=== PATIENT | male | born 1975 | race Caucasian/White ===

== ENCOUNTER 2017-03-12 18:11 | Inpatient (IN) | payer OTHER ==
[2017-03-12] MEDS ORDERED: SODIUM CHLORIDE 1,000 ML IV STA (19:34)
[2017-03-12] MEDS ORDERED: ONDANSETRON 4 MG/2 ML VIAL IVPB ONE (19:34)
--- NOTE | 2017-03-12 20:01 | PDOC ---
History of Present Illness - History of Present Illness Initial Comments: 03/12/17 19:50 41M w/ family hx of multiple cancers including pancreatic cancer in brother presenting with 4 days of epigastric pain. Pt reports having episodes of these pains for past 4 months which come and go and which pt thought were "just gas." However, this most recent episode has been constant, occurred spontaneously, 10/ 10 pain, electric shock in nature, located in epigastric region and LUQ, unrelieved by tylenol, worsened by position changes which flex abdominal muscles , not worsened by specific foods. He also endorses intermittent L leg swelling, and constant nausea and several episodes of emesis over the past few days. Pt reports only being able to tolerate water and bananas today. Pt reports drinking a 6-pack of beer every other day for the past year and was a social drinker on weekends prior to that. Pt also endorses a decreased appetite, occasional night sweats, and a 25 pound weight loss over the past year. 03/12/17 20:03 03/12/17 20:14 <Dwight Rousseau - Last Filed: 03/12/17 22:59> <Jennifer Schneider - Last Filed: 03/13/17 00:46> - General Chief Complaint: Pain Stated Complaint: CHEST PAIN Time Seen by Provider: 03/12/17 19:04 Past History - Past Medical History Seizures: Yes Comment:: 03/12/17 20:01 PSH: Repairs of 2 calcaneal fractures, a L knee fracture, and a L shoulder injury. - Immunization History Td Vaccination: Yes Immunization Up to Date: Yes - Psycho/Social/Smoking Cessation Hx Anxiety: No Suicidal Ideation: No Smoking Status: No Smoking History: Never smoked Years of Tobacco Use: 20 Have you smoked in the past 12 months: No Number of Cigarettes Smoked Daily: 15 Information on smoking cessation initiated: No 'Breaking Loose' booklet given: 08/25/13 Hx Alcohol Use: No Drug/Substance Use Hx: No Substance Use Type: Alcohol Hx Substance Use Treatment: No <Dwight Rousseau - Last Filed: 03/12/17 22:59> <Jennifer Schneider - Last Filed: 03/13/17 00:46> - Past Medical History Allergies/Adverse Reactions: Allergies Allergy/AdvReac Type Severity Reaction Status Date / Time No Known Allergies Allergy Verified 03/12/17 18:52 Home Medications: Ambulatory Orders Ibuprofen [Motrin -] 600 mg PO TID #20 tablet 08/22/13 Folic Acid - 1 mg PO DAILY #0 tablet 09/02/13 Thiamine HCl [Vitamin B1 -] 100 mg PO DAILY #0 tablet 09/02/13 Zinc Sulfate [Orazinc -] 220 mg PO DAILY #0 capsule 09/02/13 Review of Systems - Review of Systems Comments:: 03/12/17 20:10 chronic SOB upon walking [place] a large [place] by his house. denies headache, dizziness, chest pain, diarrhea, constipation, dysuria. 03/12/17 20:13 <Dwight Rousseau - Last Filed: 03/12/17 22:59> *Physical Exam - Vital Signs Last Vital Signs Temp Pulse Resp BP Pulse Ox 98.2 F 89 16 126/86 100 03/12/17 18:52 03/12/17 18:52 03/12/17 18:52 03/12/17 18:52 03/12/17 18:52 - Physical Exam Comments: 03/12/17 20:14 General: middle aged pleasant male, lying in bed in NAD Cardiac: cyst over sternum, tachycardic, normal rhythm, no m/r/g Pulm: CTAB, no wheezing, no rales Abd: markedly tender in epigastric and LUQ regions, hyperactive bowel sounds, soft, ND Extremities: 2+ pitting edema in both lower extremities, L ankle is more swollen than right ankle, onychonycosis in R toes, +distal pulses <Dwight Rousseau - Last Filed: 03/12/17 22:59> - Vital Signs Last Vital Signs Temp Pulse Resp BP Pulse Ox 98.2 F 89 16 126/86 100 03/12/17 18:52 03/12/17 18:52 03/12/17 18:52 03/12/17 18:52 03/12/17 18:52 <Jennifer Schneider - Last Filed: 03/13/17 00:46> ED Treatment Course - LABORATORY CBC & Chemistry Diagram: 03/12/17 20:35 03/12/17 20:35 <Dwight Rousseau - Last Filed: 03/12/17 22:59> - LABORATORY CBC & Chemistry Diagram: 03/12/17 20:35 03/12/17 20:35 - ADDITIONAL ORDERS Additional order review: Laboratory Results 03/12/17 03/12/17 03/12/17 22:30 22:00 20:35 Sodium Potassium Chloride Carbon Dioxide Anion Gap BUN Creatinine Creat Clearance w eGFR Random Glucose Calcium Total Bilirubin Direct Bilirubin AST ALT Alkaline Phosphatase Creatine Kinase 171 Creatine Kinase Index 0.5 CK-MB (CK-2) < 1.0 Troponin I < 0.02 Total Protein Albumin Lipase Stool Occult Blood Negative Alcohol, Quantitative < 5.0 03/12/17 20:35 Sodium 127 L Potassium 4.1 Chloride 95 L Carbon Dioxide 24 Anion Gap 8 BUN 2 L* D Creatinine 0.4 L Creat Clearance w eGFR > 60 Random Glucose 94 D Calcium 7.9 L Total Bilirubin 1.3 H Direct Bilirubin 0.3 H AST 88 H D ALT 23 Alkaline Phosphatase 258 H D Creatine Kinase Creatine Kinase Index CK-MB (CK-2) Troponin I Total Protein 7.2 D Albumin 2.6 L Lipase 121 Stool Occult Blood Alcohol, Quantitative 03/12/17 20:35 RBC 2.79 L D MCV 84.7 MCHC 31.1 L RDW 22.4 H D MPV 9.9 D Neutrophils % 73.6 Lymphocytes % 17.3 D Monocytes % 7.4 Eosinophils % 0.7 Basophils % 1.0 - RADIOLOGY Radiology Studies Ordered: Category Date Time Status ABDOMEN & PELVIS CT WITH CONTR [CT] Stat CT Scan 03/13/17 00:12 Taken CHEST X-RAY PORTABLE* [RAD] Stat Radiology 03/12/17 22:28 Completed ABDOMEN US -LIMITED [US] Stat Ultrasound 03/12/17 22:46 Completed - Medications Given in the ED: ED Medications Discontinued Medications Generic Name Dose Route Start Last Admin Trade Name Freq PRN Reason Stop Dose Admin Hydromorphone HCl 0.5 mg 03/12/17 22:31 03/12/17 23:53 Dilaudid Injection - IVPUSH 03/12/17 22:32 0.5 mg ONCE ONE Administration Sodium Chloride 1,000 mls @ 1,000 mls/hr 03/12/17 19:34 03/12/17 20:35 Normal Saline - IV 03/12/17 20:33 1,000 mls/hr ASDIR STA Administration Pantoprazole Sodium 40 mg/ 100 mls @ 200 mls/hr 03/12/17 20:07 03/12/17 20:37 Sodium Chloride IVPB 03/12/17 20:36 200 mls/hr ONCE ONE Administration Ondansetron HCl 4 mg 03/12/17 19:34 03/12/17 20:37 Zofran Injection IVPB 03/12/17 19:35 4 mg ONCE ONE Administration <Jennifer Schneider - Last Filed: 03/13/17 00:46> Medical Decision Making - Medical Decision Making 03/12/17 22:59 41 M w/ significant alcohol hx presenting with acute epigastric pain, exam notable for marked tenderness in epigastric region and b/l LE edema, possibly due to cirrhosis +/- variceal bleeding vs. gastritis vs. acute pancreatitis vs. cancer. CBC: anemia with Hgb of 7.2 and thrombocytopenia of 97 BMP: hyponatremic to 127, hypochloremic to 95, BUN of 2 LFTs: albumin of 2.6, AST of 88, alk phos of 258 FOBT: negative Abdominal US: CT abdomen/pelvis: 03/12/17 23:40 <Dwight Rousseau - Last Filed: 03/12/17 22:59> *DC/Admit/Observation/Transfer - Attestations Physician Attestion: 03/12/17 23:05 <Dwight Rousseau - Last Filed: 03/12/17 22:59> - Discharge Dispostion Admit: Yes <Jennifer Schneider - Last Filed: 03/13/17 00:46> Diagnosis at time of Disposition: Alcohol abuse, Hyponatremia, High bilirubin, Epigastric pain Anemia Qualifiers: Anemia type: other cause Other causes of anemia: other cause, not classified Qualified Code(s): D64.89 - Other specified anemias
[2017-03-12] MEDS ORDERED: PANTOPRAZOLE SODIUM 40 MG in SODIUM CHLORIDE 100 ML IVPB ONE (20:07)
[2017-03-12] MEDS ORDERED: PANTOPRAZOLE SODIUM 100 ML IVPB ONE (20:14)
[2017-03-12] MEDS ORDERED: ONDANSETRON 4 MG/2 ML VIAL ONE (20:16)
[2017-03-12 20:42] LABS: EOSINOPHIL 0.7 % (0-4.5); MCH 26.3 pg (25.7-33.7); MCHC 31.1 g/dl (32.0-35.9); MEAN CELL VOLUME 84.7 fl (80-96); MEAN PLT VOLUME 9.9 fl (7.5-11.1); NEUTROPHILS 73.6 % (42.8-82.8); PLATELET COUNT 97 K/MM3 (134-434); RDW 22.4 % (11.9-15.9); WHITE BLOOD COUNT 5.9 K/mm3 (4.0-10.0)
[2017-03-12 21:09] LABS: ALBUMIN 2.6 g/dl (3.4-5.0); ANION GAP 8 (8-16); CALCIUM 7.9 mg/dL (8.5-10.1); CO2 24 mmol/L (21-32); GLUCOSE,RANDOM 94 mg/dL (74-106); SGPT/ALT 23 U/L (12-78)
[2017-03-12 21:14] LABS: ALK PHOS 258 U/L (45-117); BILIRUBIN,TOTAL 1.3 mg/dL (0.2-1.0); CREATININE 0.4 mg/dL (0.7-1.3); TOT PROT 7.2 g/dl (6.4-8.2)
[2017-03-12 21:16] LABS: SGOT/AST 88 U/L (15-37)
[2017-03-12 21:19] LABS: PLATELET ESTIMATE DECREASED (NORMAL)
[2017-03-12 21:20] LABS: ANISOCYTOSIS 2+; CPK 171 IU/L (39-308); HYPOCHROMIA 1+; MICROCYTOSIS 1+; POLYCHROMASIA 1+; TARGET CELLS 1+
[2017-03-12 21:21] LABS: TROPONIN I < 0.02 ng/ml (0.00-0.05)
[2017-03-12 22:05] LABS: BILIRUBIN,DIRECT 0.3 mg/dL (0.0-0.2)
[2017-03-12] MEDS ORDERED: HYDROmorphone HCL CARPU-JECT 1 MG/1 ML DISP.SYRIN IVPUSH ONE (22:31)
[2017-03-12] MEDS ORDERED: HYDROmorphone HCL CARPU-JECT 1 MG/1 ML DISP.SYRIN ONE (23:50)
--- NOTE | 2017-03-13 00:14 | PN ---
Teaching Attending Note Name of Resident: Cipriano Choi ATTENDING PHYSICIAN STATEMENT I saw and evaluated the patient. I reviewed the resident's note and discussed the case with the resident. I agree with the resident's findings and plan as documented. SUBJECTIVE: 41 M with pmhx of anemia, etoh abuse, current smoker who presents with epigastric pain. Also, notes pain has been there for 4 months, but is worsened today. Pain level is 10/10, located sharita-epigastric. Notes associated nausea, states he vomited (non-bilous/non bloody), past several days. Notes nothing alleviates abdominal pain. States pain is constant and pressure-like in nature. States his last drink was 5 days ago. Denies any palpitations. OBJECTIVE: Physical: VS: Vital Signs Period Temp Pulse Resp BP Sys/[place] Pulse Ox Last 24 Hr 98.2 F 89 16 126/86 100 GEN: NAD, Resting in bed HEENT: NCAT, PERRL, Throat without erythema or exudates CARD: RRR S1, S2 RESP: Mild Expiratory wheezing bilateral ABD: BSx4, - Robertson's, Mild hepato-splenomegaly, Mild Sharita-epigastric tenderness EXT: - C/C/E CBCD WBC 5.9 K/mm3 (4.0-10.0) D 03/12/17 20:35 RBC 2.79 M/mm3 (4.00-5.60) L D 03/12/17 20:35 Hgb 7.3 GM/dL (11.7-16.9) L D 03/12/17 20:35 Hct 23.6 % (35.4-49) L D 03/12/17 20:35 MCV 84.7 fl (80-96) 03/12/17 20:35 MCHC 31.1 g/dl (32.0-35.9) L 03/12/17 20:35 RDW 22.4 % (11.9-15.9) H D 03/12/17 20:35 Plt Count 97 K/MM3 (134-434) L D 03/12/17 20:35 MPV 9.9 fl (7.5-11.1) D 03/12/17 20:35 CMP Sodium 127 mmol/L (136-145) L 03/12/17 20:35 Potassium 4.1 mmol/L (3.5-5.1) 03/12/17 20:35 Chloride 95 mmol/L (98-107) L 03/12/17 20:35 Carbon Dioxide 24 mmol/L (21-32) 03/12/17 20:35 Anion Gap 8 (8-16) 03/12/17 20:35 BUN 2 mg/dL (7-18) L* D 03/12/17 20:35 Creatinine 0.4 mg/dL (0.7-1.3) L 03/12/17 20:35 Creat Clearance w eGFR > 60 (>60) 03/12/17 20:35 Random Glucose 94 mg/dL (74-106) D 03/12/17 20:35 Calcium 7.9 mg/dL (8.5-10.1) L 03/12/17 20:35 Total Bilirubin 1.3 mg/dL (0.2-1.0) H 03/12/17 20:35 AST 88 U/L (15-37) H D 03/12/17 20:35 ALT 23 U/L (12-78) 03/12/17 20:35 Alkaline Phosphatase 258 U/L (45-117) H D 03/12/17 20:35 Total Protein 7.2 g/dl (6.4-8.2) D 03/12/17 20:35 Albumin 2.6 g/dl (3.4-5.0) L 03/12/17 20:35 CARDIAC ENZYMES Creatine Kinase 171 IU/L (39-308) 03/12/17 20:35 Troponin I < 0.02 ng/ml (0.00-0.05) 03/12/17 20:35 ABD US: Non-Mobile Gallstone with wall thickeningm Trace pericholeycystic fluid. Cannot Rule out Acute Choley, Borderline hepatomegaly with slightly lobulated contour and slightly dense echotexture. Main portal vein slightly prominent 1.5cm. Mile R. Renal Hydronephhrosis. Ekg N SR 86 Qtc 445 ASSESSMENT AND PLAN: 41 M with pmhx of etoh abuse, seizure, anemia who presents with abdominal pain, found to have possible acute choleycysitis and anemia 1.) Abdominal Pain DDx: Acute Choleycystitis/Cirrhosis - HIDA Scan - Sx. consult/abx if positive - NPO - Type and Screen - Coags, CBC Repeat 2.) Normocytic Anemia - possible due to ACD/etoh abuse vs. fe defeciency or combination - Iron studies + Ferritin - B12/Folate - HgB <7 Transfuse 1 unit - Stool Occult negative - Retic/Hapto- ro Hemolysis 3.)Thrombocytopenia - Possible due to etoh cirrhosis - Trend, Keep >[id number] if sx 4.) Chronic Hyponatremia - SIADH/Cirrhosis - U Lytes/ Fluid restrict - Do not increase more than 10 MeQ in 24 hrs 5.) Mild R. Hydronephrosis - Ua/Ucx - Monitor Cr 6.) Transaminitis - Most likely from etoh abuse 7.) Hx. Of Etoh Abuse - Last drink 5 days ago - CIWA/librium prn - Continue Thiamine/Folic A 8.) Weight loss - Chk. TSH - Possibly due to etoh abuse - CT AP- reviewed - Outpt. GI eval 8.) Current Smoker - Advise smoking cessation 9.) LLE Edema - Duplex LE 10.) Dvt Ppx - Ambulate Place in Med- Sx
--- NOTE | 2017-03-13 00:39 | PDOC ---
Attending Attestation - Resident Resident Name: Dwight Rousseau - HPI HPI: 03/13/17 00:38 41 yo male p/w epigastric pain for 3 days - Physicial Exam PE: 03/13/17 00:39 41 yo male loolking older than stated age p/w epigastric pain heent normocephalic,atraumatic,eyes eugenio eomi,neck supple lungd vta b/l cvr [id number] abd ++epigastric pain,tenderenss rectal brown stool,normal tone ext from neuro ambulatory ,axox3 - Medical Decision Making 03/13/17 00:41 41 yo male w PMG alcohol abuse,25 pack years tobacco has 3 days epigastric pain. found to be hyponatremia,anemia, stoool occult negative -admitted to med/ surg
[2017-03-13] MEDS ORDERED: morphine CARPU-JECT 4 MG/1 ML DISP.SYRIN IVPUSH PRN (00:41)
[2017-03-13] MEDS ORDERED: ONDANSETRON 4 MG/2 ML VIAL IVPB PRN (00:41)
--- NOTE | 2017-03-13 02:03 | HP ---
CHIEF COMPLAINT: I have stomach pain PCP: Esha Zavaleta MD HISTORY OF PRESENT ILLNESS: 41 yo M with h/o alcohol dependence (last drink 5 days ago) and active daily tobacco use c/o worsening epigastric pain x 4 days. Patient stated he's been having vague and chronic epigastric pain for months and he attributes the symptom to gas. The pain has become progressively worse in the last 4 days which prompted him to come in ED. It's epigastic and LUQ, non-radiating, intermittent, 8/10, pressure like, a/w NBNB nausea and vomiting but not a/w food or positional, no aggravating or alleviating factors. Patient also had 25 lbs of unintentional weight loss over last year. Denies fever, chills, chest pain, sob, urinary symptoms or dark stool. ER course was notable for: (1) Pain relief with dilaudid 0.5mg x 1 dose (2) Inconclusive RUQ U/S for cholecystitis (3) Normocytic anemia and hyponatremia Recent Travel: Denies PAST MEDICAL HISTORY: None PAST SURGICAL HISTORY: Shoulder repair Social History: Smoking: Daily smoker 14 cig x 25 years Alcohol: 3 big cans of beer every other day x 20 years Drugs: Denies Family History: Father diagnosed with colon cancer at 76 Older brother diagnosed with pancreatic cancer at 46 Mother diabetic Allergies Bee sting - anaphylaxis, need epi pen HOME MEDICATIONS: Home Medications Medication Instructions Recorded Ibuprofen [Motrin -] 600 mg PO TID #20 tablet 08/22/13 Folic Acid - 1 mg PO DAILY #0 tablet 09/02/13 Thiamine HCl [Vitamin B1 -] 100 mg PO DAILY #0 tablet 09/02/13 Zinc Sulfate [Orazinc -] 220 mg PO DAILY #0 capsule 09/02/13 REVIEW OF SYSTEMS CONSTITUTIONAL: loss of appetite, weight change Absent: fever, chills, diaphoresis, generalized weakness, malaise, HEENT: Absent: rhinorrhea, nasal congestion, throat pain, throat swelling, difficulty swallowing, mouth swelling, ear pain, eye pain, visual changes CARDIOVASCULAR: Absent: chest pain, syncope, palpitations, irregular heart rate, lightheadedness , peripheral edema RESPIRATORY: Absent: cough, shortness of breath, dyspnea with exertion, orthopnea, wheezing, stridor, hemoptysis GASTROINTESTINAL: abdominal pain, nausea, vomiting, Absent: abdominal distension, diarrhea, constipation, melena, hematochezia GENITOURINARY: Absent: dysuria, frequency, urgency, hesitancy, hematuria, flank pain, genital pain MUSCULOSKELETAL: Absent: myalgia, arthralgia, joint swelling, back pain, neck pain SKIN: Absent: rash, itching, pallor HEMATOLOGIC/IMMUNOLOGIC: Absent: easy bleeding, easy bruising, lymphadenopathy, frequent infections ENDOCRINE: Absent: unexplained weight gain, unexplained weight loss, heat intolerance, cold intolerance NEUROLOGIC: Absent: headache, focal weakness or paresthesias, dizziness, unsteady gait, seizure, mental status changes, bladder or bowel incontinence PSYCHIATRIC: Absent: anxiety, depression, suicidal or homicidal ideation, hallucinations. PHYSICAL EXAMINATION Last Vital Signs Temp Pulse Resp BP Pulse Ox 98.2 F 89 16 126/86 100 03/12/17 18:52 03/12/17 18:52 03/12/17 18:52 03/12/17 18:52 03/12/17 18:52 GENERAL: AAO x 3, speak in full sentences, not in any distress LUNGS:CTAB HEART: RRR, normal S1 and S2 without murmur, rub or gallop. ABDOMEN: Soft, tenderness in epigastric region, not distended, normoactive bowel sounds, no guarding, no rebound +hepatomegaly +splenomegaly. -ve nayak sign EXTREMITIES: 2+ pulses, warm, +2 pitting edema bilaterally, LLE swelling CBCD WBC 5.9 K/mm3 (4.0-10.0) D 03/12/17 20:35 RBC 2.79 M/mm3 (4.00-5.60) L D 03/12/17 20:35 Hgb 7.3 GM/dL (11.7-16.9) L D 03/12/17 20:35 Hct 23.6 % (35.4-49) L D 03/12/17 20:35 MCV 84.7 fl (80-96) 03/12/17 20:35 MCHC 31.1 g/dl (32.0-35.9) L 03/12/17 20:35 RDW 22.4 % (11.9-15.9) H D 03/12/17 20:35 Plt Count 97 K/MM3 (134-434) L D 03/12/17 20:35 MPV 9.9 fl (7.5-11.1) D 03/12/17 20:35 CMP Sodium 127 mmol/L (136-145) L 03/12/17 20:35 Potassium 4.1 mmol/L (3.5-5.1) 03/12/17 20:35 Chloride 95 mmol/L (98-107) L 03/12/17 20:35 Carbon Dioxide 24 mmol/L (21-32) 03/12/17 20:35 Anion Gap 8 (8-16) 03/12/17 20:35 BUN 2 mg/dL (7-18) L* D 03/12/17 20:35 Creatinine 0.4 mg/dL (0.7-1.3) L 03/12/17 20:35 Creat Clearance w eGFR > 60 (>60) 03/12/17 20:35 Calcium 7.9 mg/dL (8.5-10.1) L 03/12/17 20:35 Total Bilirubin 1.3 mg/dL (0.2-1.0) H 03/12/17 20:35 AST 88 U/L (15-37) H D 03/12/17 20:35 ALT 23 U/L (12-78) 03/12/17 20:35 Alkaline Phosphatase 258 U/L (45-117) H D 03/12/17 20:35 Total Protein 7.2 g/dl (6.4-8.2) D 03/12/17 20:35 Albumin 2.6 g/dl (3.4-5.0) L 03/12/17 20:35 IMAGING RUQ U/S on 03/13: inconclusive for cholecystitis, +liver cirrhosis CXR on 03/13: no acute pathology CT abd on 03/13: pending official report ASSESSMENT/PLAN: 41 yo M with h/o alcohol dependence and active daily tobacco use admitted to med -surg for suspected biliary colic and gastritis. Epigastric pain - Hemodynatically stable with normal WBC - Biliary colic vs. alcohol induced gastritis - HIDA scan r/o cholecystits - NPO - Pain control with morphine 2mg Q4H - Surgery consult Normocytic anemia - Likely 2/2 liver cirrhosis - f/u iron study, haptoglobin and retic count - Repeat CBC at 2am * 1 PRBC if HGB < 7 for possible cholecystectomy Thrombocytopenia - 2/2 liver cirrhosis - Cont. to monitor Elevated LFTs - 2/2 chronic alcohol use - Cont. to trend Hyponatremia - Likely chronic - Fluid restriction - Correction rate < 8 meq in 24 hours - f/u urine lytes and osmo LLE swelling - r/o DVT - Duplex U/S Alcohol dependence - CIWA 5 - No apparent sign of withdrawal - PO folic acid and thiamine FEN - Fluid restriction - Hyponatremic, fluid restriction - NPO for now Prophylaxis - DVT: SCDs - GI: not indicated Dispo - Admit to med-surg Cipriano Choi PGY-2 Pager: [phone] Visit type - Emergency Visit Emergency Visit: Yes ED Registration Date: 03/13/17 Care time: The patient presented to the Emergency Department on the above date and was hospitalized for further evaluation of their emergent condition. - New Patient This patient is new to me today: Yes Date on this admission: 03/13/17 - Critical Care Critical Care patient: No
--- NOTE | 2017-03-13 02:30 | HP ---
CHIEF COMPLAINT: epigastric pain PCP: Dr. Esha Zavaleta HISTORY OF PRESENT ILLNESS: 41yo male with no PMH presenting with epigastric pain x 4 days. Pt has an extended hx of smoking and ETOH, last drink was 4 days ago. Pt reports having similar abdominal pain over the last few months which he attributed to gas, but now the pain is worse. Rated 8/10. Pain is constant, feeling of pressure, does not radiate. The pain is not brought on by eating or positional change. Pt reports regular bowel movements. He does not take any medication for the pain. Pt also had non-bloody, non-bilious vomiting over the last couple days, last episode was this morning. Pt's brother was diagnosed with pancreatic cancer at age 46. Pt reports significant unintentional weight loss of 25 pounds over the last year. ER course was notable for: (1) abdominal US was inconclusive (2) pt received 1 dose of 0.5mg dilaudid, which relieved the abdominal pain (3) abdominal CT - results pending PAST MEDICAL HISTORY: none PAST SURGICAL HISTORY: L shoulder repair 3 yrs ago, performed at [facility] by Dr. Krishna De La O Social History: Smokin cigarettes daily x 25 years Alcohol: 3 large beers every other day x 20 years Drugs: none Family History: Brother - pancreatic cancer at age 46 Father - colon cancer at age 76 Mother - DM Allergies bee sting causing swelling/welts. Pt carries an epipen. HOME MEDICATIONS: Home Medications Medication Instructions Recorded Ibuprofen [Motrin -] 600 mg PO TID #20 tablet 08/22/13 Folic Acid - 1 mg PO DAILY #0 tablet 09/02/13 Thiamine HCl [Vitamin B1 -] 100 mg PO DAILY #0 tablet 09/02/13 Zinc Sulfate [Orazinc -] 220 mg PO DAILY #0 capsule 09/02/13 REVIEW OF SYSTEMS CONSTITUTIONAL: (+) weight loss of 25 pounds x 1 yr, loss of appetite Absent: fever, chills, diaphoresis HEENT: Absent: rhinorrhea, nasal congestion, throat pain, throat swelling, mouth swelling, ear pain, eye pain CARDIOVASCULAR: Absent: chest pain, syncope, palpitations, irregular heart rate, lightheadedness RESPIRATORY: Absent: cough, shortness of breath, dyspnea with exertion, orthopnea, wheezing, stridor, hemoptysis GASTROINTESTINAL: (+) epigastric and LUQ pain, nausea, vomiting Absent: abdominal distension, diarrhea, constipation, melena, hematochezia GENITOURINARY: Absent: dysuria, frequency, urgency, hesitancy, hematuria, flank pain, genital pain MUSCULOSKELETAL: Absent: myalgia, arthralgia, joint swelling, back pain, neck pain SKIN: Absent: rash, itching, pallor HEMATOLOGIC/IMMUNOLOGIC: Absent: easy bleeding, easy bruising, lymphadenopathy, frequent infections ENDOCRINE: Absent: heat intolerance, cold intolerance NEUROLOGIC: Absent: headache, focal weakness or paresthesias, dizziness, unsteady gait, seizure, mental status changes, bladder or bowel incontinence PSYCHIATRIC: Absent: anxiety, depression, suicidal or homicidal ideation, hallucinations. PHYSICAL EXAMINATION Vital Signs - 24 hr 03/12/17 18:52 Temperature 98.2 F Pulse Rate 89 Respiratory 16 Rate Blood Pressure 126/86 O2 Sat by Pulse 100 Oximetry (%) GENERAL: Awake, alert, and fully oriented, in no acute distress. HEAD: Normal with no signs of trauma. EYES: Sclera anicteric, conjunctiva clear. No lid lag. EARS, NOSE, THROAT: Ears normal, oropharynx clear without exudates. Moist mucous membranes. NECK: Supple without lymphadenopathy, JVD, or masses. LUNGS: Breath sounds equal, clear to auscultation bilaterally. No wheezes, and no crackles. No accessory muscle use. HEART: Regular rate and rhythm, normal S1 and S2 without murmur, rub or gallop. ABDOMEN: Tender in epigastric and LUQ. Hepatomegaly. Splenomegaly. Negative Robertson sign. No caput medusa. Soft, not distended, normoactive bowel sounds, no guarding, no rebound, no masses. UPPER EXTREMITIES: 2+ pulses, warm, well-perfused. No cyanosis. No clubbing. No peripheral edema. LOWER EXTREMITIES: 2+ pitting edema to bilateral lower extremities, Left lower leg with slightly more edema than Right leg. 2+ pulses, warm, well-perfused. No calf tenderness. Negative Partida test to Left extremity. NEUROLOGICAL: Normal speech. Normal gait. PSYCHIATRIC: Cooperative. Good eye contact. Appropriate mood and affect. SKIN: Warm, dry, normal turgor, no rashes or lesions noted. Laboratory Results CBCD WBC 5.9 K/mm3 (4.0-10.0) D 03/12/17 20:35 RBC 2.79 M/mm3 (4.00-5.60) L D 03/12/17 20:35 Hgb 7.3 GM/dL (11.7-16.9) L D 03/12/17 20:35 Hct 23.6 % (35.4-49) L D 03/12/17 20:35 MCV 84.7 fl (80-96) 03/12/17 20:35 MCHC 31.1 g/dl (32.0-35.9) L 03/12/17 20:35 RDW 22.4 % (11.9-15.9) H D 03/12/17 20:35 Plt Count 97 K/MM3 (134-434) L D 03/12/17 20:35 MPV 9.9 fl (7.5-11.1) D 03/12/17 20:35 CMP Sodium 127 mmol/L (136-145) L 03/12/17 20:35 Potassium 4.1 mmol/L (3.5-5.1) 03/12/17 20:35 Chloride 95 mmol/L (98-107) L 03/12/17 20:35 Carbon Dioxide 24 mmol/L (21-32) 03/12/17 20:35 Anion Gap 8 (8-16) 03/12/17 20:35 BUN 2 mg/dL (7-18) L* D 03/12/17 20:35 Creatinine 0.4 mg/dL (0.7-1.3) L 03/12/17 20:35 Creat Clearance w eGFR > 60 (>60) 03/12/17 20:35 Calcium 7.9 mg/dL (8.5-10.1) L 03/12/17 20:35 Total Bilirubin 1.3 mg/dL (0.2-1.0) H 03/12/17 20:35 AST 88 U/L (15-37) H D 03/12/17 20:35 ALT 23 U/L (12-78) 03/12/17 20:35 Alkaline Phosphatase 258 U/L (45-117) H D 03/12/17 20:35 Total Protein 7.2 g/dl (6.4-8.2) D 03/12/17 20:35 Albumin 2.6 g/dl (3.4-5.0) L 03/12/17 20:35 IMAGING RUQ U/S on 03/12 - inconclusive for cholecystitis, (+) liver cirrhosis CXR on 03/12 - no acute pathology CT abd on 03/13 - official report pending ASSESSMENT/PLAN: 41yo M with h/o of ETOH and smoking, admitted for suspected biliary colic vs gastritis. Epigastric pain - hemodynamically stable with normal WBC - biliary colic vs gastritis vs gastric ulcer vs cirrhosis vs cholecystisis - HIDA scan ordered for later today because U/S was inconclusive - NPO - pain control with morphine 2mg Q4H - Surgery Consult Normocytic Anemia - normal transfusion threshold. 1 U PRBCs if Hgb <7.0. - f/u iron studies Elevated LFTs - likely r/t cirrhosis - cont. to monitor Thrombocytopenia - likely r/t cirrhosis - cont. to monitor Hyponatremia - fluid restriction - correction rate less than 8meq in 24 hrs - f/u urine electrolytes Smoking Hx - Nicoderm 14mg topical patch Alcohol - no signs of withdrawal - PO folic acid and thiamine when able Left lower extremity edema - negative duplex U/S - DVT prophylaxis - SCDs FEN - hyponatremic, fluid restriction - NPO Disposition - ADM to med-surg Visit type - Emergency Visit Emergency Visit: Yes ED Registration Date: 03/13/17 Care time: The patient presented to the Emergency Department on the above date and was hospitalized for further evaluation of their emergent condition. - New Patient This patient is new to me today: Yes Date on this admission: 03/13/17 - Critical Care Critical Care patient: No
[2017-03-13 03:35] VITALS: BMI 19.3
[2017-03-13 05:32] LABS: URINE APPEARANCE CLEAR; URINE BILIRUBIN NEGATIVE (NEGATIVE); URINE BLOOD NEGATIVE (NEGATIVE); URINE COLOR LTYELLOW; URINE GLUCOSE (UA) NEGATIVE (NEGATIVE); URINE KETONE NEGATIVE (NEGATIVE); URINE LEUK ESTERASE NEGATIVE (NEGATIVE); URINE NITRITE NEGATIVE (NEGATIVE); URINE PROTEIN NEGATIVE (NEGATIVE); URINE UROBILINOGEN NEGATIVE mg/dL (0.2-1.0)
[2017-03-13 07:49] LABS: MCHC 30.7 g/dl (32.0-35.9); MEAN CELL VOLUME 84.7 fl (80-96); MEAN PLT VOLUME 9.5 fl (7.5-11.1); PLATELET COUNT 55 K/MM3 (134-434); RDW 22.5 % (11.9-15.9); WHITE BLOOD COUNT 4.9 K/mm3 (4.0-10.0)
[2017-03-13 08:05] LABS: INR 1.29 (0.82-1.09); PROTHROMBIN TIME (PATIENT) 14.3 SEC (9.98-11.88)
[2017-03-13 08:08] LABS: ACTIVATED PTT 32.5 SECONDS (26.9-34.4)
[2017-03-13 08:19] LABS: ALBUMIN 2.3 g/dl (3.4-5.0); ALK PHOS 212 U/L (45-117); ANION GAP 6 (8-16); BILIRUBIN,TOTAL 0.9 mg/dL (0.2-1.0); CO2 27 mmol/L (21-32); CREATININE 0.4 mg/dL (0.7-1.3); GLUCOSE,RANDOM 81 mg/dL (74-106); MAGNESIUM 1.9 mg/dL (1.8-2.4); SGOT/AST 40 U/L (15-37); SGPT/ALT 17 U/L (12-78)
[2017-03-13 09:26] LABS: SODIUM,RANDOM URINE 9 MMOL/L
[2017-03-13 09:27] LABS: URINE CREATININE 43.5 mg/dL (20-370)
--- NOTE | 2017-03-13 10:21 | CONSULT ---
Consult - text type - Consultation Consultation Note: Attempted to see patient - currently in HIDA scan. Will try again later. Of note, alcoholic patient with cirrhosis, ascites, hyponatremia, INR 1.3, albumin ~2.5, Hb hydrated from 7.3 to 6.6, normal wbc. Poor operative candidate even if HIDA is positive. Full consult to follow. MD Angela
[2017-03-13] MEDS ORDERED: SODIUM CHLORIDE 1,000 ML IV SCH (11:15)
[2017-03-13] MEDS ORDERED: PANTOPRAZOLE SODIUM 40 MG VIAL ONE (11:16)
[2017-03-13] MEDS ORDERED: SODIUM CHLORIDE 100 ML IVPB ONE (11:16)
[2017-03-13] MEDS: THIAMINE HCL 100 MG TABLET (FP) PO SCH (11:37)
[2017-03-13] MEDS: PANTOPRAZOLE SODIUM 40 MG in SODIUM CHLORIDE 100 ML IVPB SCH (11:37)
[2017-03-13] MEDS: FOLIC ACID 1 MG TABLET (FP) PO SCH (11:37)
[2017-03-13] MEDS: NICOTINE 14 MG/24 HOURS TOPICAL PATCH TD SCH (11:38)
--- NOTE | 2017-03-13 12:50 | EKG ---
Test Reason : Blood Pressure : / mmHG Vent. Rate : 086 BPM Atrial Rate : 086 BPM P-R Int : 154 ms QRS Dur : 082 ms QT Int : 372 ms P-R-T Axes : 067 067 052 degrees QTc Int : 445 ms NORMAL SINUS RHYTHM NORMAL ECG WHEN COMPARED WITH ECG OF 28-AUG-2013 12:55, NO SIGNIFICANT CHANGE WAS FOUND CORRELATION IS RECOMMENDED Confirmed by KENZIE GRANADOS MD ([id number] on 03/13/2017 12:49:54 PM Referred By: Confirmed By:KENZIE GRANADOS MD
--- NOTE | 2017-03-13 13:22 | PN ---
Teaching Attending Note Name of Resident: Ania Escobar ATTENDING PHYSICIAN STATEMENT I saw and evaluated the patient. I reviewed the resident's note and discussed the case with the resident. I agree with the resident's findings and plan as documented. SUBJECTIVE: denies SOB or fever . has Abd pain in epigastric area but that improved significantly. OBJECTIVE: NAD , awake and alert dry MMM . CV: RRR, no MRG Lungs : CATB ext : NO edema or erythema Abd: soft, ND , TTP in epigastric area with no rebound tenderness or guarding . Neg Robertson's . NL BS ASSESSMENT AND PLAN: 41 y/o man withh/o Alcohol abuse who presented with abd pain . He was found to be anemic 1- Epigastric pain, likely from gastritis or PUD in setting of alcohol abuse. Acute cholecystitis is unlikely as he has no TTP i n RUQ and Neg Robertson'ssign. - PPI , add carafate or MAalox . - HIDA is pending - check HP stool Ag . 2- Normocytic anemia : likely due to BM suppression for alcohol use and cirrhosis . Hb worsened with IVF use . Of course , can't r/o chronic bleeding from esophageal Varices . Also , bleeding from gastritis or PUD due to NSAIDs use - iron studies are stil pending but ferritin is 18 only indicating a component of Iron def. - start iron supp as out pt - B12, folate NL - Transfuse one unit and repeat CBC - consult GI for possible EGD . 3- Possible cirrhosis : seen on CT and US. never worked up before . - GI consult 4- Hyponatremia : likely due to hypovolemia as pt clinically is volume depleted and his Na improved after IVF administration - start IVF at a gentle rate x 24 h and then reassess - dc fluid restriction 5-Thrombocytopenia : likely due to liver disease. Not actively bleeding now. No need for transfusion 6- ALcohol Abuse : no signs of withdrawal today . - monitor for withdrawal sx - thiamine and folate - no signs of wernicke's. 7- DVT pX : SCDs
[2017-03-13] MEDS: MAG HYDROX/AL HYDROX/SIMETH 355 ML ORAL.SUSP PO SCH ×2 (14:00→22:13)
--- NOTE | 2017-03-13 14:52 | CONSULT ---
Consult Consult Specialty:: General Surgery Referred by:: Dr. Dove Reason for Consultation:: gallstones, possible cholecystitis - History of Present Illness Chief Complaint: epigastric pain with n/v initially History of Present Illness: 41yo alcoholic M smoker with h/o multiple bone fractures s/p surgeries, admitted through ER overnight with 4-5 days of progressively worsening epigastric pain, initially associated with multiple episodes of NB/NB emesis ( last ), then the ability to eat and drink over subsequent days, no F/C, no d/c, no similar previous episodes. He wanted to come to ER 2d ago, but had no transportation, and the pain has continued to get worse, until his brother could bring him last night to the ER. He has also lost 2 pants/clothes sizes in the last 1-1.5 years unintentionally. In the ER, he was found to be anemic, hyponatremic, hypochloremic, with normal wbc, afebrile, and with CT imaging showing gallstones with cirrhotic liver, ascites, pericholecystic fluid, no biliary dilation, no free air and no obstruction. US was done confirming gallstones, but was equivocal for cholecystitis, given the ascites and cirrhotic-appearing liver. He was admitted to medicine with a surgical consult to evaluate for gallbladder pathology. HIDA was done this morning, with visualization of the gallbladder but abnormal uptake and excretion of tracer c/w hepatocellular disease. His pain is improved, and he is hungry. No nausea or vomiting recently. He had loose BM/diarrhea this morning after CT with oral contrast overnight. - History Source History Provided By: Patient, Medical Record Limitations to Obtaining History: No Limitations - Past Medical History Psych: Yes: Addictions (alcohol) Musculoskeletal: Yes: Other (R heel/foot fusion) Additional Medical History: bilateral heel fractures, L shoulder injury - Past Surgical History Additional Surgical History: L humerus fracture with L shoulder surgery including reconstruction; R foot/ankle/heel surgery with fusion after fall off roof - Alcohol/Substance Use Hx Alcohol Use: Yes Number of Drinks Daily: 7 (3-20oz beers daily, more or less for many years, was less before the last yr) History of Substance Use: reports: None - Smoking History Smoking history: Current every day smoker Have you smoked in the past 12 months: Yes Aproximately how many cigarettes per day: 14 (x20 yrs) Home Medications - Allergies Allergies/Adverse Reactions: Allergies Allergy/AdvReac Type Severity Reaction Status Date / Time bee venom protein (honey bee) Allergy Severe Verified 03/13/17 14:53 - Home Medications Home Medications: Ambulatory Orders Ibuprofen [Motrin -] 600 mg PO TID #20 tablet 08/22/13 Folic Acid - 1 mg PO DAILY #0 tablet 09/02/13 Thiamine HCl [Vitamin B1 -] 100 mg PO DAILY #0 tablet 09/02/13 Zinc Sulfate [Orazinc -] 220 mg PO DAILY #0 capsule 09/02/13 Home Medications (free text): pt recently started magnesium supplements Family Disease History - Family Disease History Family Disease History: CA: Brother (pancreatic at age 46, dx 2m ago) Review of Systems - Review of Systems Constitutional: denies: Chills, Fever Eyes: denies: Blurred Vision, Double Vision HENT: denies: Difficult Swallowing, Epistaxis, Nasal Congestion, Throat Pain Neck: denies: Swollen Glands, Tenderness Cardiovascular: denies: Chest Pain, Palpitations Respiratory: denies: Cough, SOB, SOB on Exertion Gastrointestinal: reports: Abdominal Pain (with hpi), Nausea (with hpi last ), Vomiting (with HPI last ). denies: Constipation, Diarrhea, Vomiting Blood Genitourinary: denies: Burning, Dysuria Musculoskeletal: reports: Extremity Pain (R foot chronic since accident/surgery) . denies: Back Pain Integumentary: denies: Change in Color, Rash Neurological: reports: Unsteady Gait (difficulty walking secondary to R heel fusion - not otherwise unsteady, just different). denies: Dizziness, Headache, Seizure (denies), Tremors (denies with abstinence) Endocrine: reports: Unexplained Weight Loss (2 pants sizes in last year to year and a half). denies: Unexplained Weight Gain Psychiatric: denies: Anxiety, Depression Physical Exam Vital Signs: Vital Signs Temperature 98.4 F 03/13/17 11:37 Pulse Rate 79 03/13/17 11:37 Respiratory Rate 18 03/13/17 11:37 Blood Pressure 110/69 03/13/17 11:37 O2 Sat by Pulse Oximetry (%) 98 03/13/17 09:00 Constitutional: Yes: No Distress, Calm (but slightly tremorous ("when i first wake up")), Thin Eyes: Yes: Conjunctiva Clear, EOM Intact. No: Sclera Icterus HENT: Yes: Atraumatic, Normocephalic Cardiovascular: Yes: Regular Rate and Rhythm, Murmur Respiratory: Yes: Regular, CTA Bilaterally (on inspiration), Wheezes (end- expiratory bilaterally) Gastrointestinal: Yes: Normal Bowel Sounds, Soft, Tenderness, Epigastrium (mild , no R/G). No: Distention, Tenderness ...Rectal Exam: Yes: Deferred Renal/: No: CVA Tenderness - Left, CVA Tenderness - Right Musculoskeletal: No: Back Pain, Muscle Weakness Extremities: No: Cool, Cyanosis Edema: No Integumentary: No: Jaundice, Rash Neurological: Yes: Alert, Oriented, Tremors Psychiatric: Yes: Alert, Oriented Labs: CBC, BMP 03/13/17 06:00 03/13/17 06:00 CMP Sodium 133 mmol/L (136-145) L 03/13/17 06:00 Potassium 3.3 mmol/L (3.5-5.1) L 03/13/17 06:00 Chloride 100 mmol/L (98-107) 03/13/17 06:00 Carbon Dioxide 27 mmol/L (21-32) 03/13/17 06:00 Anion Gap 6 (8-16) L 03/13/17 06:00 BUN 2 mg/dL (7-18) L* 03/13/17 06:00 Creatinine 0.4 mg/dL (0.7-1.3) L 03/13/17 06:00 Creat Clearance w eGFR > 60 (>60) 03/13/17 06:00 Random Glucose 81 mg/dL (74-106) 03/13/17 06:00 Serum Osmolality Cancelled 03/13/17 05:10 Calcium 8.0 mg/dL (8.5-10.1) L 03/13/17 06:00 Magnesium 1.9 mg/dL (1.8-2.4) 03/13/17 06:00 Ferritin 18.655 ng/ml (16.4-293.9) 03/13/17 06:00 Total Bilirubin 0.9 mg/dL (0.2-1.0) D 03/13/17 06:00 Direct Bilirubin 0.3 mg/dL (0.0-0.2) H 03/12/17 20:35 AST 40 U/L (15-37) H D 03/13/17 06:00 ALT 17 U/L (12-78) D 03/13/17 06:00 Alkaline Phosphatase 212 U/L (45-117) H 03/13/17 06:00 Creatine Kinase 171 IU/L (39-308) 03/12/17 20:35 Creatine Kinase Index 0.5 % (0.0-5.0) 03/12/17 20:35 CK-MB (CK-2) < 1.0 ng/mL (0.5-3.6) 03/12/17 20:35 Troponin I < 0.02 ng/ml (0.00-0.05) 03/12/17 20:35 Total Protein 6.0 g/dl (6.4-8.2) L 03/13/17 06:00 Albumin 2.3 g/dl (3.4-5.0) L 03/13/17 06:00 Lipase 121 U/L (73-393) 03/12/17 20:35 Vitamin B12 957 pg/ml (180-914) H 03/13/17 06:00 Serum Folate 8 ng/ml (3.1-17.5) 03/13/17 06:00 Na up from 127, Cl up from 95 Hb down from 7.3 after hydration serum Osm was 255 L Imaging - Results Cat Scan: Report Reviewed, Image Reviewed Ultrasound: Report Reviewed, Image Reviewed Other: Report Reviewed (HIDA negative - slow tracer uptake and excretion consistent with hepatocellular disease, but gallbladder visualized at 45 minutes ) Problem List - Problems (1) Calculus of gallbladder w/o mention of cholecystitis or obstruction Assessment/Plan: no evidence of cholecystitis pericholecystic fluid consistent with ascites seen on CT, likely secondary to alcoholic cirrhosis no surgical intervention indicated poor surgical candidate if cholecystitis were a concern - if indicated in future , would recommend percutaneous cholecystostomy Code(s): K80.20 - CALCULUS OF GALLBLADDER W/O CHOLECYSTITIS W/O OBSTRUCTION Qualifiers: Cholecystitis presence: without cholecystitis Biliary obstruction: without biliary obstruction Qualified Code(s): K80.20 - Calculus of gallbladder without cholecystitis without obstruction (2) Epigastric abdominal pain Assessment/Plan: still present but mild could reflect gastritis (PUD or alcoholic) - GI consulted Code(s): R10.13 - EPIGASTRIC PAIN (3) Alcoholic cirrhosis of liver with ascites Assessment/Plan: likely contributing to hyponatremia GI consulted Code(s): K70.31 - ALCOHOLIC CIRRHOSIS OF LIVER WITH ASCITES (4) Hyponatremia Assessment/Plan: improving with IVF Code(s): E87.1 - HYPO-OSMOLALITY AND HYPONATREMIA (5) Anemia Assessment/Plan: pt receiving 1 unit PRBC likely chronic given lack of acute symptoms could be related to nutritional deficiencies and/or blood loss GI consulted for possible scopes Code(s): D64.9 - ANEMIA, UNSPECIFIED Qualifiers: Anemia type: unspecified type Qualified Code(s): D64.9 - Anemia, unspecified (6) Alcoholism /alcohol abuse Assessment/Plan: pt declines cessation resources, referral for rehab Code(s): F10.20 - ALCOHOL DEPENDENCE, UNCOMPLICATED Assessment/Plan Thank you for the opportunity to participate in the care of this patient.
[2017-03-13] MEDS ORDERED: chlordiazePOXIDE HCL 25 MG CAPSULE PO ONE (17:36)
--- NOTE | 2017-03-13 18:35 | CON.GI ---
Consult Consult Specialty:: Gastroenterology Referred by:: Dr. Borrero Reason for Consultation:: Anemia and abdominal pain - History of Present Illness Chief Complaint: Sharp epigastric pain with episode of nonbloody vomitus. History of Present Illness: 41M came to the ER with sharp epigastric pain with an episode of nonbloody vomitus. No radiation. The pain has resolved has he has been eating. Denies NSAID usage or h/o ulcers but does drink 3 cans of beer daily. He has not had alcohol in 5 days and denies being tremulous or anxious. He presented with an alcoholic withdrawal seizure in the setting of a left humeral comminuted fracture when I consulted on him in 08/26. His Hb was 7.5 at that time. He has never had an EGD or a colonoscopy . His father underwent a colon cancer resection at age 71 and his mother and a brother have had colon polyps removed. His 45 y/o brother is dying of pancreatic cancer. He denes hematemesis, dysphagia, early satiety, melena and rectal bleeding but he has been losing weight. 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 Place of : [facility] History of Recent Travel: No Home Medications - Allergies Allergies/Adverse Reactions: Allergies Allergy/AdvReac Type Severity Reaction Status Date / Time bee venom protein (honey bee) Allergy Severe Verified 03/13/17 14:53 - Home Medications Home Medications: Ambulatory Orders Ibuprofen [Motrin -] 600 mg PO TID #20 tablet 08/22/13 Folic Acid - 1 mg PO DAILY #0 tablet 09/02/13 Thiamine HCl [Vitamin B1 -] 100 mg PO DAILY #0 tablet 09/02/13 Zinc Sulfate [Orazinc -] 220 mg PO DAILY #0 capsule 09/02/13 Family Disease History - Family Disease History Family Disease History: CA: Father (colon cancer age 71), Brother (pancreatic at age 46, dx 2m ago), Other: Mother (colon polyps) Other Family History: cousin with breast cancer Review of Systems - Review of Systems Constitutional: reports: Lethargy, Unintentional Wgt. Loss Eyes: reports: No Symptoms HENT: reports: No Symptoms Neck: reports: No Symptoms Cardiovascular: reports: Shortness of Breath Respiratory: reports: Exercise Intolerance, SOB on Exertion Gastrointestinal: reports: Abdominal Pain, Vomiting Genitourinary: reports: No Symptoms Musculoskeletal: reports: Joint Pain Neurological: reports: No Symptoms Physical Exam-GI Vital Signs: Vital Signs Temperature 98.2 F 03/13/17 18:00 Pulse Rate 99 H 03/13/17 18:00 Respiratory Rate 18 03/13/17 18:00 Blood Pressure 125/69 03/13/17 18:00 O2 Sat by Pulse Oximetry (%) 98 03/13/17 09:00 Laboratory Tests 08/25/13 08/28/13 08/29/13 03:14 13:18 06:00 Hgb 7.5 L* 7.6 L* 9.1 L Hct Plt Count INR Total Bilirubin AST ALT Alkaline Phosphatase Albumin 08/30/13 03/12/17 03/13/17 07:45 20:35 06:00 Hgb 10.6 L D 7.3 L D 6.6 L* Hct 23.6 L D 21.6 L Plt Count 55 L D INR Total Bilirubin AST ALT Alkaline Phosphatase Albumin 03/13/17 03/13/17 06:00 06:00 Hgb Hct Plt Count INR 1.29 H Total Bilirubin 0.9 D AST 40 H D ALT 17 D Alkaline Phosphatase 212 H Albumin 2.3 L Constitutional: Yes: No Distress Eyes: Yes: Conjunctiva Clear HENT: Yes: Normocephalic Neck: Yes: Supple Cardiovascular: Yes: Regular Rate and Rhythm Respiratory: Yes: CTA Bilaterally ...Auscultate: Yes: Normoactive Bowel Sounds ...Palpate: Yes: Soft, Other (nontender) ...Percussion: Yes: Tympanitic ...Rectal Exam: Yes: Guaiac Positive, Other (no masses, 1+ soft prostate) Extremities: Yes: WNL Edema: No Peripheral Pulses WNL: Yes Neurological: Yes: Alert, Oriented Labs: CBC, BMP 03/13/17 06:00 03/13/17 06:00 INR, PTT INR 1.29 (0.82-1.09) H 03/13/17 06:00 Imaging - Results Cat Scan: Report Reviewed (Razia Caceres Name: [facility] DEPARTMENT OF RADIOLOGY Phys: Jennifer Schneider MD : 1975 Age: 41 Sex: M [facility] Acct: [id number] Loc: J [facility] Exam Date: 03/13/17 Status: [place] [address] Unit Number: [id number] EXAM#: TYPE/EXAM: RESULT: [id number] CT/ABDOMEN PELVIS CT WITH CONTR HISTORY PROVIDED: Epigastric pain. Sequential axial images were obtained from the domes of the diaphragms through the symphysis pubis following the administration of both oral and intravenous contrast material. The lung bases are clear. There is a moderate amount of ascites throughout the abdomen and pelvis. The liver is normal in overall size. It is somewhat lobulated in contour and hypodense in texture. This appearance is consistent with advanced hepatocellular disease. Clinical and laboratory correlation is recommended. The portal venous system is patent with no obvious varices identified. The spleen is somewhat prominent, but not significantly enlarged. The pancreas, adrenal glands and kidneys demonstrate no significant abnormalities. The gallbladder is somewhat contracted and does contain calcified gallstones. There is no evidence of intra or extrahepatic biliary ductal dilatation. There is marked thickening of gastric mucosal folds, predominantly within the fundus and body of the stomach. This suggests gastritis. Clinical correlation is advised. Upper endoscopy may be warranted. There is no evidence of intra-abdominal or retroperitoneal lymphadenopathy or fluid collections. Examination of the pelvis demonstrates no evidence of pelvic masses, fluid collections or lymphadenopathy. There is no evidence of acute bony abnormalities. IMPRESSION: 1. Findings consistent with cirrhosis, including a lobulated, hypodense liver, prominent spleen and a moderate amount of ascites. 2. Cholelithiasis. 3. Thickened gastric folds suggesting gastritis. Clinical correlation and follow-up recommended. Please see above discussion. Reported By: Lul Jurado MD 03/13/17838 Technologist: Jd Farah Transcribed Date/Time: 03/13/17838 Admissions Representative: Lul Jurado Printed Date/Time: [ rep prt dt last] [ rep prt tm last] By: [ rep prt user last] Signed by: Lul Jurado Signed on: 13-Mar-2017 08:40) Problem List - Problems (1) Seizure disorder Code(s): G40.909 - EPILEPSY, UNSP, NOT INTRACTABLE, WITHOUT STATUS EPILEPTICUS (2) Weight loss Code(s): R63.4 - ABNORMAL WEIGHT LOSS (3) Hypoalbuminemia Code(s): E88.09 - OTH DISORDERS OF PLASMA-PROTEIN METABOLISM, NEC (4) Family history of colon cancer in father Code(s): Z80.0 - FAMILY HISTORY OF MALIGNANT NEOPLASM OF DIGESTIVE ORGANS (5) Family history of pancreatic cancer Code(s): Z80.0 - FAMILY HISTORY OF MALIGNANT NEOPLASM OF DIGESTIVE ORGANS Assessment/Plan I believe Jairon's anemia and occult bleeding reflect 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 I do not believe that his pain is related to his gallstones or ascites. Given his FH I have advised that he undergo both an EGD and likely rubber band ligation of varices and a colonoscopy. I have discussed the potential risks associated with both procedures including perforation and hemorrhage. He has granted an informed consent.I am scheduling the EGD for 03/15 and colonoscopy for 03/16. Given his h/o a alcohol withdrawal related seizure, alcohol detox should be initiated. I have informed Jairon that he has alcoholic cirrhosis and must absolutely abstain from alcohol. I have advised that he enter into a Liver Transplant Program where they can confirm his abstinence to allow him to qualify for a transplant. I will order an AFP to screen for hepatoma. If fever ensues or pain recurs then a paracentesis should be undertaken. PPI will be given empirically. Antibiotic prophyaxis will be ordered for his possible variceal banding. I will screen him for concomitant chronic liver diseases. Further recommendations will be made based on his clinical course. Discussed with Dr Borrero.
[2017-03-13] MEDS ORDERED: KCL 10 MEQ IVPB 100 ML IVPB SCH (19:15)
[2017-03-13 20:27] LABS: MCH 26.4 pg (25.7-33.7); MCHC 30.7 g/dl (32.0-35.9); MEAN CELL VOLUME 86.2 fl (80-96); MEAN PLT VOLUME 10.2 fl (7.5-11.1); PLATELET COUNT 57 K/MM3 (134-434); RDW 20.1 % (11.9-15.9); WHITE BLOOD COUNT 4.8 K/mm3 (4.0-10.0)
--- NOTE | 2017-03-13 20:58 | PN ---
Physical Exam: SUBJECTIVE: Patient seen and examined this AM. Abd pain has decreased. No CP, no SOB, no fevers, no chills. Notes FHx of CRC in father 71yo. Notes mother and brother had colon polyps removed. No bleeding noticed OBJECTIVE: Vital Signs Period Temp Pulse Resp BP Sys/Valencia Pulse Ox Last 24 Hr 98.0 F-98.4 F 79-99 14-20 102-125/64-80 98-100 GENERAL: Awake, alert, oriented, in NAD HEENT: PERRLA, EOMi, no LAD LUNG: Intermittent expiratory wheezes, otherwise clear HEART: S1, S2, RRR, no MRH ABD: Soft, minimal TTP in epigastrium, nondistended, normoactive BS EXT: 2+ pulses, no erythema, no edema NEURO: Cranial nerves 2-12 grossly intact. Facial symmetry noted. Sensation equal and intact to face and body bilaterally, Muscle strength 5+ in all extremities, reflexes 2+ Laboratory Results - last 24 hr 03/13/17 03/13/17 03/13/17 05:10 05:10 05:10 WBC RBC Hgb Hct MCV MCH MCHC RDW Plt Count MPV Retic Count INR PTT (Actin FS) Sodium Potassium Chloride Carbon Dioxide Anion Gap BUN Creatinine Creat Clearance w eGFR Random Glucose Serum Osmolality Calcium Magnesium Ferritin Total Bilirubin AST ALT Alkaline Phosphatase Total Protein Albumin Vitamin B12 Serum Folate Urine Color Ltyellow Urine Appearance Clear Urine pH 7.0 D Ur Specific [place] 1.010 Urine Protein Negative Urine Glucose (UA) Negative Urine Ketones Negative Urine Blood Negative Urine Nitrite Negative Urine Bilirubin Negative Urine Urobilinogen Negative Ur Leukocyte Esterase Negative Urine Osmolality Ur Random Sodium 9 Ur Random Potassium 13.4 Ur Random Chloride < 10 Urine Creatinine 43.5 Cancelled Blood Type Antibody Screen Crossmatch 03/13/17 03/13/17 03/13/17 05:10 06:00 06:00 WBC 4.9 RBC 2.55 L Hgb 6.6 L* Hct 21.6 L MCV 84.7 MCH 26.0 MCHC 30.7 L RDW 22.5 H Plt Count 55 L D MPV 9.5 Retic Count INR 1.29 H PTT (Actin FS) 32.5 Sodium Potassium Chloride Carbon Dioxide Anion Gap BUN Creatinine Creat Clearance w eGFR Random Glucose Serum Osmolality Cancelled Calcium Magnesium Ferritin Total Bilirubin AST ALT Alkaline Phosphatase Total Protein Albumin Vitamin B12 Serum Folate Urine Color Urine Appearance Urine pH Ur Specific [place] Urine Protein Urine Glucose (UA) Urine Ketones Urine Blood Urine Nitrite Urine Bilirubin Urine Urobilinogen Ur Leukocyte Esterase Urine Osmolality 137 L Ur Random Sodium Ur Random Potassium Ur Random Chloride Urine Creatinine Blood Type Antibody Screen Crossmatch 03/13/17 03/13/17 03/13/17 06:00 06:00 06:00 WBC RBC Hgb Hct MCV MCH MCHC RDW Plt Count MPV Retic Count INR PTT (Actin FS) Sodium 133 L Potassium 3.3 L Chloride 100 Carbon Dioxide 27 Anion Gap 6 L BUN 2 L* Creatinine 0.4 L Creat Clearance w eGFR > 60 Random Glucose 81 Serum Osmolality Calcium 8.0 L Magnesium 1.9 Ferritin 18.655 Total Bilirubin 0.9 D AST 40 H D ALT 17 D Alkaline Phosphatase 212 H Total Protein 6.0 L Albumin 2.3 L Vitamin B12 957 H Serum Folate 8 Urine Color Urine Appearance Urine pH Ur Specific [place] Urine Protein Urine Glucose (UA) Urine Ketones Urine Blood Urine Nitrite Urine Bilirubin Urine Urobilinogen Ur Leukocyte Esterase Urine Osmolality Ur Random Sodium Ur Random Potassium Ur Random Chloride Urine Creatinine Blood Type Antibody Screen Crossmatch 03/13/17 03/13/17 03/13/17 06:00 06:00 18:30 WBC 4.8 RBC 3.04 L Hgb 8.0 L D Hct 26.2 L D MCV 86.2 MCH 26.4 MCHC 30.7 L RDW 20.1 H D Plt Count 57 L MPV 10.2 Retic Count 1.97 H D INR PTT (Actin FS) Sodium Potassium Chloride Carbon Dioxide Anion Gap BUN Creatinine Creat Clearance w eGFR Random Glucose Serum Osmolality Calcium Magnesium Ferritin Total Bilirubin AST ALT Alkaline Phosphatase Total Protein Albumin Vitamin B12 Serum Folate Urine Color Urine Appearance Urine pH Ur Specific [place] Urine Protein Urine Glucose (UA) Urine Ketones Urine Blood Urine Nitrite Urine Bilirubin Urine Urobilinogen Ur Leukocyte Esterase Urine Osmolality Ur Random Sodium Ur Random Potassium Ur Random Chloride Urine Creatinine Blood Type A POSITIVE Antibody Screen Negative Crossmatch See Detail Active Medications Generic Name Dose Route Start Last Admin Trade Name Freq PRN Reason Stop Dose Admin Al Hydroxide/Mg Hydroxide 30 ml 03/13/17 14:00 03/13/17 14:00 Mylanta Suspension - PO Not Given TID MARIFER Folic Acid 1 mg 03/13/17 10:00 03/13/17 11:37 Folic Acid - PO 1 mg DAILY MARIFER Administration Pantoprazole Sodium 40 mg/ 100 mls @ 200 mls/hr 03/13/17 10:00 03/13/17 11:37 Sodium Chloride IVPB 200 mls/hr DAILY MARIFER Administration Cefazolin Sodium 2 gm/ 50 mls @ 100 mls/hr 03/15/17 06:00 Dextrose IVPB 03/15/17 06:29 ONCE ONE Nicotine 14 mg 03/13/17 10:00 03/13/17 11:38 Nicoderm Patch - TD 14 mg DAILY MARIFER Administration Spironolactone 25 mg 03/13/17 22:00 Aldactone - PO BID MARIFER Thiamine HCl 100 mg 03/13/17 10:00 03/13/17 11:37 Vitamin B1 - PO 100 mg DAILY MARIFER Administration ASSESSMENT/PLAN: 41yo M with a long h/o of alcohol abuse, alcohol withdrawal seizures, admitted with epigastric pain and nonbloody nonbilious emesis. # Epigastric pain - HIDA neg for cholecystitis, CT shows signs of gastritis - Pain is much improved - GI recommends upper EGD on w/ colonoscopy sunday due to FHx - GI gave abx propylaxis for possible variceal banding - F/u screen for chronic liver diseases - Surgery recommends no intervention - Pt on IV protonix 40mg QD # Normocytic Anemia - Likely due to erosive gastritis vs ulcer vs variceal bleed - Likely component of YURY (low ferritin) - s/p 1 unit PRBC, Hgb resolved - No occult bleeding - f/u iron studies # Thrombocytopenia - Likely related to alcoholic suppression of bone marrow - No occult bleeding, keep monitor - Keep PLT >50 # Cirrhosis - AST/ALT > 2 + imaging findings consistent - Likely elated to alcoholism - Pt aware, understands importance of abstinence - Has associated ascites, added spironolactone 25mg BID - Watch for SBP, if pt has fever --> paracentesis # Hyponatremia - Patient received fluids in ED, resolved - Continue to monitor Alcohol - No signs of withdrawal, but has hx of withdrawal seizures - Given Librium 25mg PO once + thiamine - Monitor for withdrawal # Weight Loss - Likely due to alcohol abuse - F/u TSH, GI eval # FEN - Fluids: None, fluids on hold if Na+ still low - Electrolytes: Monitor - Nutrition: sodium controlled diet # Prophylaxis - DVT: SCDs - GI: On IV protonix # Med Rec - Will obtain med rec from pharmacy tomorrow Visit type - Emergency Visit Emergency Visit: No - New Patient This patient is new to me today: No - Critical Care Critical Care patient: No
[2017-03-13] MEDS ORDERED: PT OWN MED DRAWER 7, Y5N ONE (21:29)
[2017-03-13] MEDS: SPIRONOLACTONE 25 MG TABLET (FP) PO SCH (21:36)
[2017-03-13] MEDS ORDERED: diphenhydrAMINE HCL 25 MG CAPSULE (FP) PO ONE (22:05)
[2017-03-14] MEDS: MAG HYDROX/AL HYDROX/SIMETH 30 ML UNIT-DOSE CUP PO SCH ×3 (06:04→21:17)
[2017-03-14 08:04] LABS: MCHC 31.6 g/dl (32.0-35.9); MEAN CELL VOLUME 85.5 fl (80-96); MEAN PLT VOLUME 10.1 fl (7.5-11.1); PLATELET COUNT 57 K/MM3 (134-434); RDW 19.8 % (11.9-15.9); WHITE BLOOD COUNT 4.9 K/mm3 (4.0-10.0)
[2017-03-14 08:06] LABS: SERUM IRON 66 ug/dL (38-169); TOTAL IRON BINDING CAPACITY 369 ug/dL (250-450); UIBC 303 ug/dL (111-343)
[2017-03-14 08:21] LABS: ALBUMIN 2.4 g/dl (3.4-5.0); AMYLASE 34 U/L (25-115); ANION GAP 6 (8-16); BILIRUBIN,DIRECT 0.5 mg/dL (0.0-0.2); CALCIUM 7.7 mg/dL (8.5-10.1); CO2 28 mmol/L (21-32); CREATININE 0.4 mg/dL (0.7-1.3); GLUCOSE,RANDOM 88 mg/dL (74-106); SGOT/AST 53 U/L (15-37); SGPT/ALT 18 U/L (12-78)
[2017-03-14 08:25] LABS: ALK PHOS 218 U/L (45-117); TOT PROT 6.2 g/dl (6.4-8.2)
--- NOTE | 2017-03-14 08:42 | PN ---
Physical Exam: SUBJECTIVE: Patient seen and examined this AM. Abd pain 2/10, improving. No CP, no SOB, no fevers, no chills. No bleeding OBJECTIVE: Vital Signs Period Temp Pulse Resp BP Sys/Valencia Pulse Ox Last 24 Hr 98.2 F-98.5 F 73-99 18-20 110-151/59-84 98-100 GENERAL: Awake, alert, oriented, in NAD HEENT: PERRLA, EOMi, no LAD LUNG: Intermittent expiratory wheezes, otherwise clear HEART: S1, S2, RRR, no MRH ABD: Soft, minimal TTP in epigastrium, nondistended, normoactive BS EXT: 2+ pulses, no erythema, no edema NEURO: Cranial nerves 2-12 grossly intact. Facial symmetry noted. Sensation equal and intact to face and body bilaterally, Muscle strength 5+ in all extremities, reflexes 2+ Laboratory Results - last 24 hr 03/13/17 03/13/17 03/13/17 05:10 05:10 05:10 WBC RBC Hgb Hct MCV MCH MCHC RDW Plt Count MPV Retic Count Haptoglobin Sodium Potassium Chloride Carbon Dioxide Anion Gap BUN Creatinine Creat Clearance w eGFR Random Glucose Calcium Magnesium Iron TIBC Iron Saturation Total Bilirubin AST ALT Alkaline Phosphatase Ammonia Total Protein Albumin Vitamin B12 Serum Folate Urine Color Ltyellow Urine Appearance Clear Urine pH 7.0 D Ur Specific [place] 1.010 Urine Protein Negative Urine Glucose (UA) Negative Urine Ketones Negative Urine Blood Negative Urine Nitrite Negative Urine Bilirubin Negative Urine Urobilinogen Negative Ur Leukocyte Esterase Negative Ur Random Sodium 9 Ur Random Potassium 13.4 Ur Random Chloride < 10 Urine Creatinine 43.5 Cancelled Blood Type Antibody Screen Crossmatch 03/13/17 03/13/17 03/13/17 06:00 06:00 06:00 WBC RBC Hgb Hct MCV MCH MCHC RDW Plt Count MPV Retic Count Haptoglobin Sodium 133 L Potassium 3.3 L Chloride 100 Carbon Dioxide 27 Anion Gap 6 L BUN 2 L* Creatinine 0.4 L Creat Clearance w eGFR > 60 Random Glucose 81 Calcium 8.0 L Magnesium 1.9 Iron 66 TIBC 369 Iron Saturation 18 Total Bilirubin 0.9 D AST 40 H D ALT 17 D Alkaline Phosphatase 212 H Ammonia Total Protein 6.0 L Albumin 2.3 L Vitamin B12 957 H Serum Folate 8 Urine Color Urine Appearance Urine pH Ur Specific [place] Urine Protein Urine Glucose (UA) Urine Ketones Urine Blood Urine Nitrite Urine Bilirubin Urine Urobilinogen Ur Leukocyte Esterase Ur Random Sodium Ur Random Potassium Ur Random Chloride Urine Creatinine Blood Type Antibody Screen Crossmatch 03/13/17 03/13/17 03/13/17 06:00 06:00 06:00 WBC RBC Hgb Hct MCV MCH MCHC RDW Plt Count MPV Retic Count 1.97 H D Haptoglobin 108 Sodium Potassium Chloride Carbon Dioxide Anion Gap BUN Creatinine Creat Clearance w eGFR Random Glucose Calcium Magnesium Iron TIBC Iron Saturation Total Bilirubin AST ALT Alkaline Phosphatase Ammonia Total Protein Albumin Vitamin B12 Serum Folate Urine Color Urine Appearance Urine pH Ur Specific [place] Urine Protein Urine Glucose (UA) Urine Ketones Urine Blood Urine Nitrite Urine Bilirubin Urine Urobilinogen Ur Leukocyte Esterase Ur Random Sodium Ur Random Potassium Ur Random Chloride Urine Creatinine Blood Type A POSITIVE Antibody Screen Negative Crossmatch See Detail 03/13/17 03/14/17 03/14/17 18:30 05:35 05:35 WBC 4.8 RBC 3.04 L Hgb 8.0 L D Hct 26.2 L D MCV 86.2 MCH 26.4 MCHC 30.7 L RDW 20.1 H D Plt Count 57 L MPV 10.2 Retic Count 2.03 H Haptoglobin Sodium Potassium Chloride Carbon Dioxide Anion Gap BUN Creatinine Creat Clearance w eGFR Random Glucose Calcium Magnesium Iron TIBC Iron Saturation Total Bilirubin AST ALT Alkaline Phosphatase Ammonia 46.29 H Total Protein Albumin Vitamin B12 Serum Folate Urine Color Urine Appearance Urine pH Ur Specific [place] Urine Protein Urine Glucose (UA) Urine Ketones Urine Blood Urine Nitrite Urine Bilirubin Urine Urobilinogen Ur Leukocyte Esterase Ur Random Sodium Ur Random Potassium Ur Random Chloride Urine Creatinine Blood Type Antibody Screen Crossmatch 03/14/17 05:35 WBC 4.9 RBC 2.99 L Hgb 8.1 L Hct 25.5 L MCV 85.5 MCH 27.0 MCHC 31.6 L RDW 19.8 H Plt Count 57 L MPV 10.1 Retic Count Haptoglobin Sodium Potassium Chloride Carbon Dioxide Anion Gap BUN Creatinine Creat Clearance w eGFR Random Glucose Calcium Magnesium Iron TIBC Iron Saturation Total Bilirubin AST ALT Alkaline Phosphatase Ammonia Total Protein Albumin Vitamin B12 Serum Folate Urine Color Urine Appearance Urine pH Ur Specific [place] Urine Protein Urine Glucose (UA) Urine Ketones Urine Blood Urine Nitrite Urine Bilirubin Urine Urobilinogen Ur Leukocyte Esterase Ur Random Sodium Ur Random Potassium Ur Random Chloride Urine Creatinine Blood Type Antibody Screen Crossmatch Active Medications Generic Name Dose Route Start Last Admin Trade Name Wendy PRN Reason Stop Dose Admin Al Hydroxide/Mg Hydroxide 30 ml 03/14/17 06:00 03/14/17 06:04 Mylanta Oral Suspension - PO 30 ml TID MARIFER Administration Folic Acid 1 mg 03/13/17 10:00 03/13/17 11:37 Folic Acid - PO 1 mg DAILY MARIFER Administration Pantoprazole Sodium 40 mg/ 100 mls @ 200 mls/hr 03/13/17 10:00 03/13/17 11:37 Sodium Chloride IVPB 200 mls/hr DAILY MARIFER Administration Cefazolin Sodium 2 gm/ 50 mls @ 100 mls/hr 03/15/17 06:00 Dextrose IVPB 03/15/17 06:29 ONCE ONE Nicotine 14 mg 03/13/17 10:00 03/13/17 11:38 Nicoderm Patch - TD 14 mg DAILY MARIFER Administration Spironolactone 25 mg 03/13/17 22:00 03/13/17 21:36 Aldactone - PO 25 mg BID MARIFER Administration Thiamine HCl 100 mg 03/13/17 10:00 03/13/17 11:37 Vitamin B1 - PO 100 mg DAILY MARIFER Administration ASSESSMENT/PLAN: 41yo M with a long h/o of alcohol abuse, alcohol withdrawal seizures, admitted with epigastric pain and nonbloody nonbilious emesis. # Epigastric pain - HIDA neg for cholecystitis, CT shows signs of gastritis - Pain is much improved, given bentyl 1x PO - GI recommends upper EGD on tmrw w/ colonoscopy sunday due to FHx - GI gave abx propylaxis for possible variceal banding - F/u lab screen for chronic liver diseases - Surgery recommends no intervention - Pt on PO protonix 40mg QD # Normocytic Anemia - Likely due to erosive gastritis vs ulcer vs variceal bleed - Likely component of YURY (low ferritin) - s/p 1 unit PRBC, Hgb resolved - No occult bleeding - f/u iron studies # Thrombocytopenia - Likely related to alcoholic suppression of bone marrow - No occult bleeding, keep monitor - Keep PLT >50 # Cirrhosis - AST/ALT > 2 + imaging findings consistent - Likely elated to alcoholism - Pt aware, understands importance of abstinence - Has associated ascites, added spironolactone 25mg BID - Watch for SBP, if pt has fever --> paracentesis # Hyponatremia - Patient received fluids in ED, resolved, d/c'd fluids - Continue to monitor # Hx of Alcohol Abuse - No signs of withdrawal, but has hx of withdrawal seizures - Given Librium 25mg PO once + thiamine - Monitor for withdrawal # Weight Loss - Likely due to alcohol abuse - F/u GI eval # FEN - Fluids: None - Electrolytes: Monitor - Nutrition: sodium controlled diet # Prophylaxis - DVT: SCDs - GI: On PO protonix Visit type - Emergency Visit Emergency Visit: No - New Patient This patient is new to me today: No - Critical Care Critical Care patient: No
[2017-03-14] MEDS ORDERED: SODIUM CHLORIDE 100 ML IVPB ONE (10:07)
[2017-03-14] MEDS ORDERED: PANTOPRAZOLE SODIUM 40 MG VIAL ONE (10:07)
[2017-03-14] MEDS: FOLIC ACID 1 MG TABLET (FP) PO SCH (10:23)
[2017-03-14] MEDS: THIAMINE HCL 100 MG TABLET (FP) PO SCH (10:23)
[2017-03-14] MEDS: SPIRONOLACTONE 25 MG TABLET (FP) PO SCH ×2 (10:23→21:17)
[2017-03-14] MEDS: NICOTINE 14 MG/24 HOURS TOPICAL PATCH TD SCH (10:23)
[2017-03-14] MEDS: PANTOPRAZOLE SODIUM 40 MG in SODIUM CHLORIDE 100 ML IVPB SCH (10:24)
[2017-03-14] MEDS ORDERED: DICYCLOMINE HCL 10 MG CAPSULE PO ONE (15:30)
--- NOTE | 2017-03-14 19:05 | PN ---
Teaching Attending Note Name of Resident: Ania Escobar ATTENDING PHYSICIAN STATEMENT I saw and evaluated the patient. I reviewed the resident's note and discussed the case with the resident. I agree with the resident's findings and plan as documented. SUBJECTIVE: Patient is feeling better, c/o Having midepigastric pain. No nausea or vomiting. No sign of withdrawel. OBJECTIVE: Vital Signs Temperature 99 F 03/14/17 18:00 Pulse Rate 78 03/14/17 14:29 Respiratory Rate 20 03/14/17 18:00 Blood Pressure 111/63 03/14/17 18:00 O2 Sat by Pulse Oximetry (%) 100 03/14/17 09:00 CBCD WBC 4.9 K/mm3 (4.0-10.0) 03/14/17 05:35 RBC 2.99 M/mm3 (4.00-5.60) L 03/14/17 05:35 Hgb 8.1 GM/dL (11.7-16.9) L 03/14/17 05:35 Hct 25.5 % (35.4-49) L 03/14/17 05:35 MCV 85.5 fl (80-96) 03/14/17 05:35 MCHC 31.6 g/dl (32.0-35.9) L 03/14/17 05:35 RDW 19.8 % (11.9-15.9) H 03/14/17 05:35 Plt Count 57 K/MM3 (134-434) L 03/14/17 05:35 MPV 10.1 fl (7.5-11.1) 03/14/17 05:35 CMP Sodium 135 mmol/L (136-145) L 03/14/17 05:35 Potassium 3.7 mmol/L (3.5-5.1) 03/14/17 05:35 Chloride 101 mmol/L (98-107) 03/14/17 05:35 Carbon Dioxide 28 mmol/L (21-32) 03/14/17 05:35 Anion Gap 6 (8-16) L 03/14/17 05:35 BUN 2 mg/dL (7-18) L* 03/14/17 05:35 Creatinine 0.4 mg/dL (0.7-1.3) L 03/14/17 05:35 Creat Clearance w eGFR > 60 (>60) 03/13/17 06:00 Random Glucose 88 mg/dL (74-106) 03/14/17 05:35 Calcium 7.7 mg/dL (8.5-10.1) L 03/14/17 05:35 Total Bilirubin 1.0 mg/dL (0.2-1.0) 03/14/17 05:35 AST 53 U/L (15-37) H D 03/14/17 05:35 ALT 18 U/L (12-78) 03/14/17 05:35 Alkaline Phosphatase 218 U/L (45-117) H 03/14/17 05:35 Total Protein 6.2 g/dl (6.4-8.2) L 03/14/17 05:35 Albumin 2.4 g/dl (3.4-5.0) L 03/14/17 05:35 CARDIAC ENZYMES Creatine Kinase 171 IU/L (39-308) 03/12/17 20:35 Troponin I < 0.02 ng/ml (0.00-0.05) 03/12/17 20:35 Current Medications Generic Name Dose Route Start Last Admin Trade Name Moisesq PRN Reason Stop Dose Admin Al Hydroxide/Mg Hydroxide 30 ml 03/14/17 06:00 03/14/17 14:08 Mylanta Oral Suspension - PO 30 ml TID MARIFER Administration Folic Acid 1 mg 03/13/17 10:00 03/14/17 10:23 Folic Acid - PO 1 mg DAILY MARIFER Administration Cefazolin Sodium 2 gm/ 50 mls @ 100 mls/hr 03/15/17 06:00 Dextrose IVPB 03/15/17 06:29 ONCE ONE Nicotine 14 mg 03/13/17 10:00 03/14/17 10:23 Nicoderm Patch - TD 14 mg DAILY MARIFER Administration Pantoprazole Sodium 40 mg 03/15/17 10:00 Protonix - PO DAILY MARIFER Spironolactone 25 mg 03/13/17 22:00 03/14/17 10:23 Aldactone - PO 25 mg BID MARIFER Administration Thiamine HCl 100 mg 03/13/17 10:00 03/14/17 10:23 Vitamin B1 - PO 100 mg DAILY MARIFER Administration Home Medications Medication Instructions Recorded NK [No Known Home Medication] 03/14/17 Abdomen: Medipigastric tenderness. Rest of PE per resident's note ASSESSMENT AND PLAN: 41 y/o man withh/o Alcohol abuse who presented with abd pain . He was found to be anemic # Acute Epigastric pain due to his ETOH dependency on PPI can't r/o PUD. Will give one dose of Bentyl for now. # Normocytic anemia : possible due to PUD/ alcohol use going for EGD/ colonoscopy in am by Dr. Chaudhari # Possible cirrhosis : seen on CT and US due to alcohol consumption. GI on the case # Hyponatremia improved s/p IVF # Thrombocytopenia possibly due to alcohol liver cirrhosis # ALcohol Abuse : no signs of withdrawal today thiamine, folic acid continue. DVT Px: early ambulation. AC contraindicated due to thrombocytopenia.
--- NOTE | 2017-03-15 03:38 | HOSP ---
Subjective - Review of Symptoms Events since last encounter: Received page from floor staff at 03:14 on 03/15 for evaluation of pt. When arriving pt was in wheelchair in hallway and I was informed that he had left the building to smoke unbeknownst to nursing staff and was found returning to his room. Nursing staff reports pt being altered once found stating he had a room rented with his brother here. Pt reports on last memory is inconsistent stating on one occasion he last remembered going under his bed sheets and upon inquisition another time that his last memory was drinking a soda and taking medication. Pt is currently appropriate to mood and oriented to his name and place. Upon questioning he states he was only going downstairs to smoke cigarettes and denies any illicit drug or alcohol use while gone. Pt reports no other complaints. Neurological: Yes: Other (Tremulousness) Physical Examination Vital Signs: Vital Signs Temperature 99.2 F 03/14/17 20:02 Pulse Rate 76 03/14/17 20:02 Respiratory Rate 20 03/14/17 20:04 Blood Pressure 126/95 03/14/17 20:02 O2 Sat by Pulse Oximetry (%) 97 03/14/17 20:04 Constitutional: Yes: Well Nourished, No Distress, Calm Eyes: Yes: EOM Intact, PERRL, Other (No nystagmus noted. Peripheral vision intact.) HENT: Yes: Atraumatic, Normocephalic, Other (No alcohol on breath noted) Neck: Yes: WNL, Trachea Midline Cardiovascular: Yes: Tachycardia, Other (regular rhythm). No: Murmur Respiratory: Yes: Regular, Wheezes (diffuse expiratory wheezes throughout) Gastrointestinal: Yes: Normal Bowel Sounds, Soft Extremities: Yes: Other (Tremor noted in upper extremities) Edema: No Neurological: Yes: Alert, Oriented (Oriented to person place and date.) Psychiatric: Yes: Other (Slightly anxious. Otherwise alert and oriented. Defensive in actions) Labs: CBC, BMP 03/14/17 05:35 03/14/17 05:35 Hospitalist Encounter Assessment: Pt has history of alcohol abuse and currently still smokes, here for peptic ulcer vs. gastritis. pt is alcohol abuser and at risk for withdrawals; received librium once on this admission so far. With inconsistencies in last memory alongside normal physical exam and vitals inclined to think pt autonomously left room with intent on going outside to smoke. Altered status on returning seems genuine and may warrant careful observation, however at time of evaluation pt had return to oriented baseline. P Plan: Will observe carefully and instructed floor staff to call if any other strange abnormalities or events surface If worsening withdrawal symptoms in future will use librium to control EGD tomorrow as planned per pt's peptic ulcer vs. gastritis being main medical problem
[2017-03-15] MEDS ORDERED: chlordiazePOXIDE HCL 25 MG CAPSULE PO PRN (03:50)
[2017-03-15] MEDS ORDERED: chlordiazePOXIDE HCL 25 MG CAPSULE PO ONE (03:58)
[2017-03-15] MEDS ORDERED: CEFAZOLIN 2 GM in DEXTROSE 5%-WATER - 50 ML IVPB ONE (06:00)
[2017-03-15 06:06] LABS: HEP B SURFACE AB Non Reactive (.)
[2017-03-15] MEDS ORDERED: ceFAZolin SODIUM 1 GM VIAL ONE (06:20)
[2017-03-15] MEDS ORDERED: DEXTROSE 5%-WATER - 50 ML IVPB ONE (06:21)
[2017-03-15 06:22] VITALS: BP 109/70; PULSE 71; TEMP 98.9
[2017-03-15] MEDS: MAG HYDROX/AL HYDROX/SIMETH 30 ML UNIT-DOSE CUP PO SCH (06:27)
[2017-03-15] MEDS ORDERED: diazePAM CARPU-JECT 10 MG/2 ML DISP.SYRIN IVPUSH ONE ×2 (07:00)
--- NOTE | 2017-03-15 07:52 | PN ---
Physical Exam: SUBJECTIVE: Patient seen and examined thsi AM. Aware of events overnight. Pt s/ p 50mg Librium PO (although pt is NPO). Pt is anxious but improving from the night. No tremors, no diaphoresis, no hallucinations. Pt received 0.5mg Ativan IVPush. Will reassess. To do EGD today 10am. OBJECTIVE: Vital Signs Period Temp Pulse Resp BP Sys/Valencia Pulse Ox Last 24 Hr 98.2 F-99.2 F 63-79 17-20 109-139/63-95 97-100 GENERAL: Awake, alert, oriented, in NAD HEENT: PERRLA, EOMi, no LAD LUNG: Intermittent expiratory wheezes, otherwise clear HEART: S1, S2, RRR, no MRH ABD: Soft, minimal TTP in epigastrium, nondistended, normoactive BS EXT: 2+ pulses, no erythema, no edema NEURO: Cranial nerves 2-12 grossly intact. Facial symmetry noted. Sensation equal and intact to face and body bilaterally, Muscle strength 5+ in all extremities, reflexes 2+ Laboratory Results - last 24 hr 03/13/17 03/13/17 03/14/17 06:00 06:00 05:35 WBC RBC Hgb Hct MCV MCH MCHC RDW Plt Count MPV Retic Count 2.03 H Haptoglobin 108 Sodium Potassium Chloride Carbon Dioxide Anion Gap BUN Creatinine Random Glucose Calcium Iron 66 TIBC 369 Iron Saturation 18 Total Bilirubin Direct Bilirubin AST ALT Alkaline Phosphatase Ammonia Total Protein Albumin Total Amylase Lipase Tumor Marker AFP Hepatitis A Ab Total Hep Bs Antigen Hep Bs Antibody Hep B Core Total Ab Hepatitis C Antibody 03/14/17 03/14/17 03/14/17 05:35 05:35 05:35 WBC RBC Hgb Hct MCV MCH MCHC RDW Plt Count MPV Retic Count Haptoglobin Sodium 135 L Potassium 3.7 Chloride 101 Carbon Dioxide 28 Anion Gap 6 L BUN 2 L* Creatinine 0.4 L Random Glucose 88 Calcium 7.7 L Iron TIBC Iron Saturation Total Bilirubin 1.0 Direct Bilirubin 0.5 H D AST 53 H D ALT 18 Alkaline Phosphatase 218 H Ammonia 46.29 H Total Protein 6.2 L Albumin 2.4 L Total Amylase 34 D Lipase 129 Tumor Marker AFP 5.6 Hepatitis A Ab Total Negative Hep Bs Antigen Negative Hep Bs Antibody Non reactive Hep B Core Total Ab Negative Hepatitis C Antibody 03/14/17 03/14/17 05:35 05:35 WBC 4.9 RBC 2.99 L Hgb 8.1 L Hct 25.5 L MCV 85.5 MCH 27.0 MCHC 31.6 L RDW 19.8 H Plt Count 57 L MPV 10.1 Retic Count Haptoglobin Sodium Potassium Chloride Carbon Dioxide Anion Gap BUN Creatinine Random Glucose Calcium Iron TIBC Iron Saturation Total Bilirubin Direct Bilirubin AST ALT Alkaline Phosphatase Ammonia Total Protein Albumin Total Amylase Lipase Tumor Marker AFP Hepatitis A Ab Total Hep Bs Antigen Hep Bs Antibody Hep B Core Total Ab Hepatitis C Antibody <0.1 Active Medications Generic Name Dose Route Start Last Admin Trade Name Freq PRN Reason Stop Dose Admin Al Hydroxide/Mg Hydroxide 30 ml 03/14/17 06:00 03/15/17 06:27 Mylanta Oral Suspension - PO Not Given TID MARIFER Folic Acid 1 mg 03/13/17 10:00 03/14/17 10:23 Folic Acid - PO 1 mg DAILY MARIFER Administration Nicotine 14 mg 03/13/17 10:00 03/14/17 10:23 Nicoderm Patch - TD 14 mg DAILY MARIFER Administration Pantoprazole Sodium 40 mg 03/15/17 10:00 Protonix - PO DAILY MARIFER Spironolactone 25 mg 03/13/17 22:00 03/14/17 21:17 Aldactone - PO 25 mg BID MARIFER Administration Thiamine HCl 100 mg 03/13/17 10:00 03/14/17 10:23 Vitamin B1 - PO 100 mg DAILY MARIFER Administration ASSESSMENT/PLAN: 41yo M with a long h/o of alcohol abuse, alcohol withdrawal seizures, admitted with epigastric pain and nonbloody nonbilious emesis. STILL EDITING # Hx of Alcohol Abuse - Pt has hx of withdrawal seizures - Given Librium 25mg PO once + 50mg PO today after withdrawal symptoms - Pt also given 0.5mg Ativan, will reassess today - Pt on thiamine - Monitor for withdrawal # Epigastric pain - HIDA neg for cholecystitis, CT shows signs of gastritis - Pain is much improved, given bentyl 1x PO - GI recommends upper EGD today w/ colonoscopy sunday due to FHx - GI gave abx propylaxis for possible variceal banding - F/u lab screen for chronic liver diseases - Surgery recommends no intervention - Pt on PO protonix 40mg QD # Normocytic Anemia - Likely due to erosive gastritis vs ulcer vs variceal bleed - Likely component of YURY (low ferritin) - s/p 1 unit PRBC, Hgb resolved - No occult bleeding - f/u iron studies # Thrombocytopenia - Likely related to alcoholic suppression of bone marrow - No occult bleeding, keep monitor - Keep PLT >50 # Cirrhosis - AST/ALT > 2 + imaging findings consistent - Likely elated to alcoholism - Pt aware, understands importance of abstinence - Has associated ascites, added spironolactone 25mg BID - Watch for SBP, if pt has fever --> paracentesis # Hyponatremia - Patient received fluids in ED, resolved, d/c'd fluids - Continue to monitor # Weight Loss - Likely due to alcohol abuse - F/u GI eval # FEN - Fluids: None - Electrolytes: Monitor - Nutrition: sodium controlled diet # Prophylaxis - DVT: SCDs - GI: On PO protonix
[2017-03-15 07:54] LABS: MCH 27.4 pg (25.7-33.7); MCHC 31.3 g/dl (32.0-35.9); MEAN CELL VOLUME 87.3 fl (80-96); MEAN PLT VOLUME 9.8 fl (7.5-11.1); PLATELET COUNT 72 K/MM3 (134-434); RDW 20.9 % (11.9-15.9); WHITE BLOOD COUNT 5.5 K/mm3 (4.0-10.0)
[2017-03-15 08:35] LABS: ALBUMIN 2.8 g/dl (3.4-5.0); ALK PHOS 203 U/L (45-117); ANION GAP 6 (8-16); BILIRUBIN,TOTAL 0.9 mg/dL (0.2-1.0); CALCIUM 8.4 mg/dL (8.5-10.1); CO2 27 mmol/L (21-32); CREATININE 0.4 mg/dL (0.7-1.3); GLUCOSE,RANDOM 81 mg/dL (74-106); SGOT/AST 47 U/L (15-37); SGPT/ALT 21 U/L (12-78); TOT PROT 6.8 g/dl (6.4-8.2)
[2017-03-15] MEDS ORDERED: PANTOPRAZOLE 40 MG TABLET (FP) PO SCH (10:00)
[2017-03-15 13:45] LABS: SMOOTH MUSCLE AB 12 Units (0-19)
--- NOTE | 2017-03-15 15:49 | DS ---
Physical Exam: SUBJECTIVE: Patient seen and examined this AM. Pt is anxious but improving from the night. No tremors, no diaphoresis, no hallucinations. States he is calm when he sees familiar faces. Ordered 0.5mg Ativan IV Push and re-evaluation in 30 minutes. The examiner was notified that the patient wanted to leave AMA. The examiner went to the floor, and spoke to the patient regarding the medical risks of leaving against medical advice. The patient expressed understanding. OBJECTIVE: Vital Signs Period Temp Pulse Resp BP Sys/Valencia Pulse Ox Last 24 Hr 98.5 F-99.2 F 63-76 20-20 109-129/63-95 97 PHYSICAL EXAM GENERAL: The patient is awake, alert, and fully oriented, in no acute distress. HEAD: Normal with no signs of trauma. EYES: PERRL, extraocular movements intact, sclera anicteric, conjunctiva clear. ENT: Ears normal, nares patent, oropharynx clear without exudates, moist mucous membranes. NECK: Trachea midline, full range of motion, supple. LUNGS: Breath sounds equal, clear to auscultation bilaterally, no wheezes, no crackles, no accessory muscle use. HEART: Regular rate and rhythm, S1, S2 without murmur, rub or gallop. ABDOMEN: Soft, nontender, nondistended, normoactive bowel sounds, no guarding, no rebound, no hepatosplenomegaly, no masses. EXTREMITIES: 2+ pulses, warm, well-perfused, no edema. NEUROLOGICAL: Cranial nerves II through XII grossly intact. Normal speech, gait not observed. PSYCH: Normal mood, normal affect. SKIN: Warm, dry, normal turgor, no rashes or lesions noted. LABS Laboratory Results - last 24 hr 03/14/17 03/14/17 03/15/17 05:35 05:35 06:00 WBC 5.5 RBC 3.15 L Hgb 8.6 L Hct 27.5 L MCV 87.3 MCH 27.4 MCHC 31.3 L RDW 20.9 H Plt Count 72 L D MPV 9.8 Sodium Potassium Chloride Carbon Dioxide Anion Gap BUN Creatinine Creat Clearance w eGFR Random Glucose Calcium Total Bilirubin AST ALT Alkaline Phosphatase Total Protein Albumin Tumor Marker AFP 5.6 Smooth Musc &PARKING RAMP ATTENDANT Intrp 12 Tiss Transglutamin IgG < 2 Tiss Transglutamin IgA < 2 Hepatitis A Ab Total Negative Hep Bs Antigen Negative Hep Bs Antibody Non reactive Hep B Core Total Ab Negative Hepatitis C Antibody <0.1 03/15/17 06:00 WBC RBC Hgb Hct MCV MCH MCHC RDW Plt Count MPV Sodium 134 L Potassium 3.5 Chloride 101 Carbon Dioxide 27 Anion Gap 6 L BUN 2 L* Creatinine 0.4 L Creat Clearance w eGFR > 60 Random Glucose 81 Calcium 8.4 L Total Bilirubin 0.9 AST 47 H ALT 21 Alkaline Phosphatase 203 H Total Protein 6.8 Albumin 2.8 L Tumor Marker AFP Smooth Musc &PARKING RAMP ATTENDANT Intrp Tiss Transglutamin IgG Tiss Transglutamin IgA Hepatitis A Ab Total Hep Bs Antigen Hep Bs Antibody Hep B Core Total Ab Hepatitis C Antibody HOSPITAL COURSE: Date of Admission:03/13/17 Date of Discharge: 03/15/17 Mr Jairon Byers is a 41yo M with a long h/o of alcohol abuse, alcohol withdrawal seizures, who was admitted with epigastric pain and nonbloody nonbilious emesis. After 2 days the patient decided to leave the hospital AMA. # Epigastric pain - A RUQ ultrasound was inconclusive for cholecystitis findings. A HIDA Scan revealed gallbladder filling and unlikely cholecystitis. CT of the abdomen showed significant gastric folding which was consistent with gastritis. General surgery recommended no surgical inervention. Gastroenterology was consulted who saw the patient and recommended an upper endoscopy to check for varices, ulcers , and/or gastritis. They also recommended a colonoscopy, given the patient's family history of CRC and polyp removal. The EGD was scheduled for 03/15 and colonoscopy for 03/16. # Hx of Alcohol Abuse - The patient has a long history of alcohol abuse. He did not present with withdrawal symptoms. He was given 1 dose of Librium 25mg PO on 03/13 and another dose of Librium 50mg PO on 03/15. He was started on thiamine, and monitored for withdrawal. On 03/15 the patient became agitated and had visual hallucinations. The patient was given 0.5mg Ativan IV push which decreased the agitation. Two hours later, the patient' agitation returned, and he asked to sign AMA. The patient did not want to continue his hospitalization and wanted to leave against medical advice. I explained to the patient that AMA is dangerous and can lead to worsening of his condition, permanent disability, and even . I used lay terminology and answered all questions. It is clear to me that the patient understands the benefits of continuous hospital stay and risks of leaving AMA. He has the capacity to make his own decisions and agrees to followup with his primary care doctor. He agrees to return to the emergency room if symptoms worsen. # Normocytic Anemia - The patient presented with Hgb of 7.3. This could have been due to an erosive gastritis vs ulcer vs small variceal bleed. He was scheduled for an upper endoscopy on 03/15, but signed AMA. There was likely a component of iron deficiency anemia since his ferritin was low. His Hgb dropped to slightly below 7, without any episodes of bleeding. He was given 1 unit of PRBC which successfully raised the Hgb up to 8.6. # Thrombocytopenia - The patient's thrombocytopenia is likely related to alcoholic suppression of the bone marrow. His platelets did not drop below 50, and there were no signs of occult bleeding, and thus did not need any platelet transfusions. # Alcoholic Cirrhosis - The patient's drinking history, imaging findings, mild ascites, with AST/ALT ratio greater than 2, low BUN, low albumin are all findings consistent with alcoholic cirrhosis. The patient was made aware of his liver status and the importance of abstinence. The Visitor Services Assistant ordered lab screens for chronic kidney disease, which were pending at discharge. Spironolactone 25mg BID was added to the patient's regimen in the hospital. # Other - Hyponatremia: Likely hypovolemic hyponatremia since it resolved with fluids Minutes to complete discharge: 55 Discharge Summary Reason For Visit: HYPONATREMIA ETOH ABUSE ANEMIA - Instructions Diet, Activity, Other Instructions: - F/u with your PCP for the wheezing - abstain from alcohol Referrals: Esha Zavaleta [Primary Care Provider] - Disposition: AGAINST MEDICAL ADVICE - Home Medications Comprehensive Discharge Medication List: Ambulatory Orders NK [No Known Home Medication] 03/14/17
--- NOTE | 2017-03-15 16:22 | DS ---
Physical Exam: SUBJECTIVE: Patient seen and examined this AM. Pt is anxious but improving from the night. No tremors, no diaphoresis, no hallucinations. States he is calm when he sees familiar faces. Ordered 0.5mg Ativan IV Push and re-evaluation in 30 minutes. The examiner was notified that the patient wanted to leave AMA. The examiner went to the floor, and spoke to the patient regarding the medical risks of leaving against medical advice. The patient expressed understanding. OBJECTIVE: Vital Signs Period Temp Pulse Resp BP Sys/Valencia Pulse Ox Last 24 Hr 98.5 F-99.2 F 63-76 20-20 109-129/63-95 97 PHYSICAL EXAM GENERAL: Awake, alert, oriented, in NAD HEENT: PERRLA, EOMi, no LAD LUNG: Intermittent expiratory wheezes, otherwise clear HEART: S1, S2, RRR, no MRH ABD: Soft, minimal TTP in epigastrium, nondistended, normoactive BS EXT: 2+ pulses, no erythema, no edema NEURO: Cranial nerves 2-12 grossly intact. Facial symmetry noted. Sensation equal and intact to face and body bilaterally, Muscle strength 5+ in all extremities, reflexes 2+ LABS Laboratory Results - last 24 hr 03/14/17 03/14/17 03/15/17 05:35 05:35 06:00 WBC 5.5 RBC 3.15 L Hgb 8.6 L Hct 27.5 L MCV 87.3 MCH 27.4 MCHC 31.3 L RDW 20.9 H Plt Count 72 L D MPV 9.8 Sodium Potassium Chloride Carbon Dioxide Anion Gap BUN Creatinine Creat Clearance w eGFR Random Glucose Calcium Total Bilirubin AST ALT Alkaline Phosphatase Total Protein Albumin Tumor Marker AFP 5.6 Smooth Musc &CHIP MIXING MACHINE OPERATOR Intrp 12 Tiss Transglutamin IgG < 2 Tiss Transglutamin IgA < 2 Hepatitis A Ab Total Negative Hep Bs Antigen Negative Hep Bs Antibody Non reactive Hep B Core Total Ab Negative Hepatitis C Antibody <0.1 03/15/17 06:00 WBC RBC Hgb Hct MCV MCH MCHC RDW Plt Count MPV Sodium 134 L Potassium 3.5 Chloride 101 Carbon Dioxide 27 Anion Gap 6 L BUN 2 L* Creatinine 0.4 L Creat Clearance w eGFR > 60 Random Glucose 81 Calcium 8.4 L Total Bilirubin 0.9 AST 47 H ALT 21 Alkaline Phosphatase 203 H Total Protein 6.8 Albumin 2.8 L Tumor Marker AFP Smooth Musc &CHIP MIXING MACHINE OPERATOR Intrp Tiss Transglutamin IgG Tiss Transglutamin IgA Hepatitis A Ab Total Hep Bs Antigen Hep Bs Antibody Hep B Core Total Ab Hepatitis C Antibody HOSPITAL COURSE: Date of Admission:03/13/17 Date of Discharge: 03/15/17 Mr Jairon Byers is a 41yo M with a long h/o of alcohol abuse, alcohol withdrawal seizures, who was admitted with epigastric pain and nonbloody nonbilious emesis. After 2 days the patient decided to leave the hospital AMA. # Epigastric pain - A RUQ ultrasound was inconclusive for cholecystitis findings. A HIDA Scan revealed gallbladder filling and unlikely cholecystitis. CT of the abdomen showed significant gastric folding which was consistent with gastritis. General surgery recommended no surgical inervention. Gastroenterology was consulted who saw the patient and recommended an upper endoscopy to check for varices, ulcers , and/or gastritis. They also recommended a colonoscopy, given the patient's family history of CRC and polyp removal. He was scheduled for EGD and colonoscopy, but signed AMA the day of the procedure. # Hx of Alcohol Abuse - The patient has a long history of alcohol abuse. He did not present with withdrawal symptoms. He was given Librium, started on thiamine, and monitored for withdrawal. The patient later asked to sign AMA. The patient did not want to continue his hospitalization and wanted to leave against medical advice. I explained to the patient that AMA is dangerous and can lead to worsening of his condition, permanent disability, and even . I used lay terminology and answered all questions. It is clear to me that the patient understands the benefits of continuous hospital stay and risks of leaving AMA. He has the capacity to make his own decisions and agrees to followup with his primary care doctor. He agrees to return to the emergency room if symptoms worsen. # Normocytic Anemia - The patient presented with Hgb of 7.3. This could have been due to an erosive gastritis vs ulcer vs small variceal bleed. He was scheduled for an upper endoscopy on 03/15, but signed AMA. His Hgb dropped to slightly below 7, without any episodes of bleeding. He was given 1 unit of PRBC which successfully raised the Hgb up to 8.6. # Thrombocytopenia - The patient's thrombocytopenia is likely related to alcoholic suppression of the bone marrow. His platelets did not drop below 50, and there were no signs of occult bleeding, and thus did not need any platelet transfusions. # Alcoholic Cirrhosis - The patient's drinking history, imaging findings, mild ascites, with AST/ALT ratio greater than 2, low BUN, low albumin are all findings consistent with alcoholic cirrhosis. The patient was made aware of his liver status and the importance of abstinence. # Other - Hyponatremia: Likely hypovolemic hyponatremia since it resolved with fluids The patient was aware of the hospital course and expressed understanding of the risks of leaving AMA. Minutes to complete discharge: 55 Discharge Summary Reason For Visit: HYPONATREMIA ETOH ABUSE ANEMIA Condition: Good - Instructions Diet, Activity, Other Instructions: Patient left AMA, please see discharge summary Patient was given the following recommendations prior to discharge: - Please followup with your primary care doctor for your liver - If your primary doctor recommends you to see a Merchandising Lead, please do so - You will need an upper endoscopy and a colonoscopy - Please continue to abstain from alcohol as it will damage your liver further - Please followup with your doctor about your expiratory wheezing Referrals: Esha Zavaleta [Primary Care Provider] - Disposition: AGAINST MEDICAL ADVICE - Home Medications Comprehensive Discharge Medication List: Ambulatory Orders NK [No Known Home Medication] 03/14/17 This patient is new to me today: No Emergency Visit: No Critical Care patient: No - Discharge Referral Referred to [facility] Med P.C.: No
--- NOTE | 2017-03-15 20:17 | PN ---
Teaching Attending Note Name of Resident: Ania Escobar ATTENDING PHYSICIAN STATEMENT I saw and evaluated the patient. I reviewed the resident's note and discussed the case with the resident. I agree with the resident's findings and plan as documented. SUBJECTIVE: Patient signed against medical advice. [id number]
== END 2017-03-15 08:07 | disposition left against medical advice (07) | DRG 422 ==
LOC: JER 18:11 → JERBED 03-13 00:47 → J7W 03-13 03:14
PROVIDERS: ADMIT Internal Medicine; ATTEND Internal Medicine
PROC: HZ2ZZZZ Detoxification Services for Substance Abuse Treatment (ICD-10-PCS; principal; 2017-03-13)
PROC: 30233N1 Transfusion of Nonautologous Red Blood Cells into Peripheral Vein, Percutaneous Approach (ICD-10-PCS; 2017-03-13)
DX: E87.1 Hypo-osmolality and hyponatremia (principal); K70.31 Alcoholic cirrhosis of liver with ascites; D64.89 Other specified anemias; D69.6 Thrombocytopenia, unspecified; N13.39 Other hydronephrosis; R74.0 Nonspecific elevation of levels of transaminase and lactic acid dehydrogenase [LDH]; R63.4 Abnormal weight loss; Z68.1 Body mass index [BMI] 19.9 or less, adult; F17.210 Nicotine dependence, cigarettes, uncomplicated; R60.0 Localized edema; R10.13 Epigastric pain; K29.60 Other gastritis without bleeding; E86.1 Hypovolemia; K80.20 Calculus of gallbladder without cholecystitis without obstruction; E87.8 Other disorders of electrolyte and fluid balance, not elsewhere classified; D64.9 Anemia, unspecified; F10.20 Alcohol dependence, uncomplicated; G40.89 Other seizures; K76.6 Portal hypertension; K31.89 Other diseases of stomach and duodenum
CPT/HCPCS: 36415; 36430; 71010-TC; 74177-TC; 76705-TC; 78226-TC; 80048; 80053; 80076; 80307; 81003; 82105; 82140; 82150; 82248; 82272; 82436; 82570; 82607; 82728; 82746; 83010; 83516; 83540; 83550; 83690; 83735; 83930; 83935; 84133; 84300; 84484; 85025; 85027; 85044; 85610; 85730; 86038; 86704; 86706; 86708; 86803; 86850; 86900; 86901; 86922; 87340; 93005; 93010; 93971-TC; 99285-25; A9537; P9038; P9058

== ENCOUNTER 2017-03-15 14:56 | Inpatient (IN) | payer OTHER ==
[2017-03-15 15:01] VITALS: TEMP 98
--- NOTE | 2017-03-15 15:46 | PDOC ---
History of Present Illness - General Chief Complaint: Altered Mental Status Stated Complaint: cirrhosis of liver, signed out AMA from [facility]W this am Time Seen by Provider: 03/15/17 15:43 - History of Present Illness Initial Comments: 03/15/17 18:46 Patient is a 41-year-old male with past medical history of alcoholism, anemia, cirrhosis of the liver, who presents to the emergency department today in an altered mental status. He is brought in by his family. His family states that he is not acting like himself and "speaking in nonsense ". Patient state he was seen in the hospital today but he left AMA. Upon questioning the patient why he left he states that he was tired of being poked and all of the people in the hospital made him very anxious. He has no complaints at this time. Denies fevers , chills, nausea, vomiting, diarrhea, headache, tactile disturbance, visual hallucination, audio hallucinations, suicidal ideation. Patient states that he had 2 beers prior to his arrival to the emergency department. Past History - Travel Traveled outside of the country in the last 30 days: No Close contact w/someone who was outside of country & ill: No - Past Medical History Allergies/Adverse Reactions: Allergies Allergy/AdvReac Type Severity Reaction Status Date / Time bee venom protein (honey bee) Allergy Severe Verified 03/15/17 15:01 Bleach (Sodium Hypochlorite) Allergy Verified 03/15/17 15:03 Home Medications: Ambulatory Orders NK [No Known Home Medication] 03/14/17 Anemia: No Asthma: No Cancer: No Cardiac Disorders: No CVA: No COPD: No CHF: No Dementia: No Diabetes: No GI Disorders: No Disorders: No HTN: No Hypercholesterolemia: No Liver Disease: Yes (cirrhosis) Seizures: Yes Thyroid Disease: No - Surgical History Abdominal Surgery: No Appendectomy: No Cardiac Surgery: No Cholecystectomy: No Lung Surgery: No Neurologic Surgery: No Orthopedic Surgery: Yes (left shoulder) - Immunization History Td Vaccination: Yes Immunization Up to Date: Yes - Psycho/Social/Smoking Cessation Hx Anxiety: No Suicidal Ideation: No Smoking Status: No Smoking History: Current every day smoker Years of Tobacco Use: 20 Have you smoked in the past 12 months: Yes Number of Cigarettes Smoked Daily: 20 Information on smoking cessation initiated: Yes 'Breaking Loose' booklet given: 03/15/17 Hx Alcohol Use: No Drug/Substance Use Hx: No Substance Use Type: Alcohol Hx Substance Use Treatment: No Review of Systems - Review of Systems Constitutional: No: Chills, Fever, Weakness Respiratory: No: Cough, Shortness of Breath, Wheezing Cardiac (ROS): No: Chest Pain, Edema, Lightheadedness, Palpitations, Syncope, Chest Tightness ABD/GI: No: Diarrhea, Nausea, Vomiting Neurological: No: Headache, Numbness, Weakness, Unsteady Gait Psychiatric: Yes: Anxiety, Stressors (family issues/illness). No: Depression All Other Systems: Reviewed and Negative *Physical Exam - Vital Signs Last Vital Signs Temp Pulse Resp BP Pulse Ox 98 F 82 18 114/73 100 03/15/17 14:59 03/15/17 14:59 03/15/17 14:59 03/15/17 14:59 03/15/17 14:59 - Physical Exam General Appearance: Yes: Nourished, Appropriately Dressed, Alcohol on Breath. No: Apparent Distress HEENT: positive: EOMI, TRACEY Respiratory/Chest: positive: Lungs Clear, Normal Breath Sounds. negative: Chest Tender, Respiratory Distress, Accessory Muscle Use, Crackles, Rales, Rhonchi Cardiovascular: positive: Regular Rhythm, Regular Rate, S1, S2 (present). negative: JVD, Murmur Gastrointestinal/Abdominal: positive: Normal Bowel Sounds, Tender (epigastric tenderness, RUQ pain), Soft. negative: Flat, Pulsatile Mass Extremity: positive: Normal Capillary Refill, Normal Inspection, Normal Range of Motion Integumentary: positive: Normal Color, Dry, Warm Neurologic: positive: fluid designer II-XII NML intact, Alert (over vigialnt), Motor Strength 5/5, Confused, Disoriented. negative: Fully Oriented (to person, not place or time), Normal Mood/Affect (anxious, paranoid), Normal Response, Numbness ED Treatment Course - LABORATORY CBC & Chemistry Diagram: 03/15/17 16:48 03/15/17 16:48 Medical Decision Making - Medical Decision Making 03/15/17 17:04 Patient is a 41-year-old male with past medical history of alcoholism, anemia, cirrhosis of the liver, who presents to the emergency department today in an altered mental status. Patient is oriented to person but not place or time. He seems confused on exam. His physical exam is benign. There was concern for GI bleed at his last admission. We will order basic labs and alcohol to evaluate. 1.CBC, CMP, alcohol, U tox 2. Guiac 3. reevaluate 03/15/17 18:26 Patient is becoming more disoriented and agitated in the ER. He now believes that he saw a cat walk through the emergency department. He is also made statements to his brother that he is on a boat. I believe at this time he is suffering from alcoholic delirium. Pt. is adamantly refusing the rectal exam. deferred at this time Labs show anemia 8.2 however this is increased to his prior admission was 6. Alcohol level is 100. Ammonia is 27. 03/15/17 18:45 Patient is not safe for discharge as he is delirious from alcohol withdrawal. We will give banana bag and Librium at this time. We will admit to hospitalist service. 03/15/17 18:55 [facility] received sign out, will accept pt. *DC/Admit/Observation/Transfer Diagnosis at time of Disposition: Alcoholism /alcohol abuse, Visual hallucinations, Alcohol withdrawal delirium Altered mental state Qualifiers: Altered mental status type: disorientation Qualified Code(s): R41.0 - Disorientation, unspecified - Discharge Dispostion Condition at time of disposition: Guarded Admit: Yes - Referrals Referrals: Natali Sanford MD [Primary Care Provider] - CIWA Score - CIWA Score Nausea/Vomitin-No Nausea/No Vomiting Muscle Tremors: None Anxiety: 4-Mod. Anxious/Guarded Agitation: 6 Paroxysmal Sweats: No Perspiration Orientation: 2-Disoriented Date<2 days Tacttile Disturbances: 0-None Auditory Disturbances: 2-Mild Harshness/Frighten Visual Disturbances: 5-Severe Hallucinations Headache: 0-None Present CIWA-Ar Total Score: 19
[2017-03-15 16:58] LABS: BASOPHIL 1.2 % (0-2.0); EOSINOPHIL 3.2 % (0-4.5); MCH 26.9 pg (25.7-33.7); MCHC 30.8 g/dl (32.0-35.9); MEAN CELL VOLUME 87.3 fl (80-96); MEAN PLT VOLUME 9.9 fl (7.5-11.1); NEUTROPHILS 64.4 % (42.8-82.8); PLATELET COUNT 77 K/MM3 (134-434); RDW 20.5 % (11.9-15.9); WHITE BLOOD COUNT 6.7 K/mm3 (4.0-10.0)
[2017-03-15 17:01] LABS: URINE APPEARANCE CLEAR; URINE BILIRUBIN NEGATIVE (NEGATIVE); URINE BLOOD NEGATIVE (NEGATIVE); URINE COLOR STRAW; URINE GLUCOSE (UA) NEGATIVE (NEGATIVE); URINE KETONE NEGATIVE (NEGATIVE); URINE LEUK ESTERASE NEGATIVE (NEGATIVE); URINE NITRITE NEGATIVE (NEGATIVE); URINE PROTEIN NEGATIVE (NEGATIVE); URINE UROBILINOGEN NEGATIVE mg/dL (0.2-1.0)
[2017-03-15 17:35] LABS: URINE MARIJUANA THC NEGATIVE ng/ml (CUTOFF=50)
[2017-03-15] MEDS ORDERED: FOLIC ACID INJECTION - 1 MG, THIAMINE HCL 100 MG, MULTIVIT INJECTION ADULT 10 ML in SOD... IVPB ONE (17:35)
[2017-03-15] MEDS ORDERED: chlordiazePOXIDE HCL 25 MG CAPSULE PO ONE (17:40)
[2017-03-15 17:51] LABS: ALBUMIN 2.7 g/dl (3.4-5.0); ALK PHOS 197 U/L (45-117); ANION GAP 9 (8-16); BILIRUBIN,TOTAL 0.7 mg/dL (0.2-1.0); CALCIUM 8.1 mg/dL (8.5-10.1); CO2 23 mmol/L (21-32); CREATININE 0.4 mg/dL (0.7-1.3); GLUCOSE,RANDOM 88 mg/dL (74-106); SGOT/AST 57 U/L (15-37); SGPT/ALT 22 U/L (12-78); TOT PROT 6.8 g/dl (6.4-8.2)
[2017-03-15] MEDS ORDERED: chlordiazePOXIDE HCL 25 MG CAPSULE ONE (17:57)
[2017-03-15] MEDS ORDERED: chlordiazePOXIDE HCL 25 MG CAPSULE PO PRN (18:40)
[2017-03-15] MEDS ORDERED: LORazepam 1 MG TABLET PO PRN (18:43)
--- NOTE | 2017-03-15 18:58 | HP ---
CHIEF COMPLAINT: abdominal pain. PCP:Esha Zavaleta MD HISTORY OF PRESENT ILLNESS: 41 yo M with significant PMhx of cirrhosis and alcohol abuse presents to ER after having left this morning AMA. He was originally admitted for intractable abdominal pain and was scheduled to have upper endoscopy and colonoscopy done. However he left this morning AMA secondary to agitation. His family members found him after drinking and he was found to have increased AMS. In ER he is confabulating and confused. He does not know where his is or what happened this morning. He denies CP,RAVI, SOB, abd.pain, N/V. ER course was notable for: (1)Blood alcohol >100 (2)CIWA 19 (3) PAST MEDICAL HISTORY:Cirrhosis and alcohol abuse. PAST SURGICAL HISTORY: L shoulder repair 3 yrs ago, performed at [facility] by Dr. Krishna De La O Social History: Smokin cigarettes daily x 25 years Alcohol: 3 large beers every other day x 20 years Drugs: none Family History: Brother - pancreatic cancer at age 46 Father - colon cancer at age 76 Mother - DM Allergies bee sting causing swelling/welts. Pt carries an epipen. HOME MEDICATIONS: Home Medications Medication Instructions Recorded NK [No Known Home Medication] 03/14/17 REVIEW OF SYSTEMS CONSTITUTIONAL: Absent: fever, chills, diaphoresis, generalized weakness, malaise, loss of appetite, weight change HEENT: Absent: rhinorrhea, nasal congestion, throat pain, throat swelling, difficulty swallowing, mouth swelling, ear pain, eye pain, visual changes CARDIOVASCULAR: Absent: chest pain, syncope, palpitations, irregular heart rate, lightheadedness , peripheral edema RESPIRATORY: Absent: cough, shortness of breath, dyspnea with exertion, orthopnea, wheezing, stridor, hemoptysis GASTROINTESTINAL: Absent: abdominal pain, abdominal distension, nausea, vomiting, diarrhea, constipation, melena, hematochezia GENITOURINARY: Absent: dysuria, frequency, urgency, hesitancy, hematuria, flank pain, genital pain MUSCULOSKELETAL: Absent: myalgia, arthralgia, joint swelling, back pain, neck pain SKIN: Absent: rash, itching, pallor HEMATOLOGIC/IMMUNOLOGIC: Absent: easy bleeding, easy bruising, lymphadenopathy, frequent infections ENDOCRINE: Absent: unexplained weight gain, unexplained weight loss, heat intolerance, cold intolerance NEUROLOGIC: Absent: headache, focal weakness or paresthesias, dizziness, unsteady gait, seizure, mental status changes, bladder or bowel incontinence PSYCHIATRIC: Absent: anxiety, depression, suicidal or homicidal ideation, hallucinations. PHYSICAL EXAMINATION Vital Signs - 24 hr 03/15/17 14:59 Temperature 98 F Pulse Rate 82 Respiratory 18 Rate Blood Pressure 114/73 O2 Sat by Pulse 100 Oximetry (%) GENERAL: awake and alert, confused HEAD: Normal with no signs of trauma. EYES: Pupils equal, round and reactive to light, extraocular movements intact, sclera anicteric, conjunctiva clear. No lid lag. EARS, NOSE, THROAT: Ears normal, nares patent, oropharynx clear without exudates. Moist mucous membranes. NECK: Normal range of motion, supple without lymphadenopathy, JVD, or masses. LUNGS: Breath sounds equal, clear to auscultation bilaterally. No wheezes, and no crackles. No accessory muscle use. HEART: Regular rate and rhythm, normal S1 and S2 without murmur, rub or gallop. ABDOMEN: Soft, nontender, not distended, normoactive bowel sounds, no guarding, no rebound, no masses. No hepatomegaly or splenomegaly. MUSCULOSKELETAL: Normal range of motion at all joints. No bony deformities or tenderness. No CVA tenderness. UPPER EXTREMITIES: 2+ pulses, warm, well-perfused. No cyanosis. No clubbing. No peripheral edema. LOWER EXTREMITIES: 2+ pulses, warm, well-perfused. No calf tenderness. No peripheral edema. NEUROLOGICAL: Cranial nerves II-XII intact. Normal speech. gait not observed, confabulating. PSYCHIATRIC: Cooperative. Good eye contact. Appropriate mood and affect. SKIN: Warm, dry, normal turgor, no rashes or lesions noted, normal capillary refill. Laboratory Results - last 24 hr 03/15/17 03/15/17 03/15/17 16:48 16:48 16:48 WBC 6.7 RBC 3.06 L Hgb 8.2 L Hct 26.7 L MCV 87.3 MCH 26.9 MCHC 30.8 L RDW 20.5 H Plt Count 77 L MPV 9.9 Neutrophils % 64.4 Lymphocytes % 20.8 D Monocytes % 10.4 H Eosinophils % 3.2 D Basophils % 1.2 Sodium 133 L Potassium 3.6 Chloride 101 Carbon Dioxide 23 Anion Gap 9 BUN < 1 L* D Creatinine 0.4 L Creat Clearance w eGFR > 60 Random Glucose 88 Calcium 8.1 L Total Bilirubin 0.7 D AST 57 H D ALT 22 Alkaline Phosphatase 197 H Ammonia 27.82 Total Protein 6.8 Albumin 2.7 L Lipase Urine Color Urine Appearance Urine pH Urine Protein Urine Glucose (UA) Urine Ketones Urine Blood Urine Nitrite Urine Bilirubin Urine Urobilinogen Ur Leukocyte Esterase Opiates Screen Methadone Screen Barbiturate Screen Phencyclidine Screen Ur Amphetamines Screen MDMA (Ecstasy) Screen Benzodiazepines Screen Cocaine Screen U Marijuana (THC) Screen Alcohol, Quantitative 03/15/17 03/15/17 03/15/17 16:48 16:48 16:48 WBC RBC Hgb Hct MCV MCH MCHC RDW Plt Count MPV Neutrophils % Lymphocytes % Monocytes % Eosinophils % Basophils % Sodium Potassium Chloride Carbon Dioxide Anion Gap BUN Creatinine Creat Clearance w eGFR Random Glucose Calcium Total Bilirubin AST ALT Alkaline Phosphatase Ammonia Total Protein Albumin Lipase 121 Urine Color Straw Urine Appearance Clear Urine pH 7.0 Urine Protein Negative Urine Glucose (UA) Negative Urine Ketones Negative Urine Blood Negative Urine Nitrite Negative Urine Bilirubin Negative Urine Urobilinogen Negative Ur Leukocyte Esterase Negative Opiates Screen Methadone Screen Barbiturate Screen Phencyclidine Screen Ur Amphetamines Screen MDMA (Ecstasy) Screen Benzodiazepines Screen Cocaine Screen U Marijuana (THC) Screen Alcohol, Quantitative 101.0 H* 03/15/17 16:48 WBC RBC Hgb Hct MCV MCH MCHC RDW Plt Count MPV Neutrophils % Lymphocytes % Monocytes % Eosinophils % Basophils % Sodium Potassium Chloride Carbon Dioxide Anion Gap BUN Creatinine Creat Clearance w eGFR Random Glucose Calcium Total Bilirubin AST ALT Alkaline Phosphatase Ammonia Total Protein Albumin Lipase Urine Color Urine Appearance Urine pH Urine Protein Urine Glucose (UA) Urine Ketones Urine Blood Urine Nitrite Urine Bilirubin Urine Urobilinogen Ur Leukocyte Esterase Opiates Screen Negative Methadone Screen Negative Barbiturate Screen Negative Phencyclidine Screen Negative Ur Amphetamines Screen Negative MDMA (Ecstasy) Screen Negative Benzodiazepines Screen Positive Cocaine Screen Negative U Marijuana (THC) Screen Negative Alcohol, Quantitative ASSESSMENT/PLAN: 40 yo M with PMHx of Etoh abuse and cirrhosis admitted for acute alcohol withdrawl delerium and hyponatremia. Problem List - Problem (1) Alcohol withdrawal delirium Assessment/Plan: * neuro checks Q4h * Librium protocol * ativan prn for agitation (2) Epigastric abdominal pain Assessment/Plan: * evaluated by Dr diallo * planned EGD (3) Hyponatremia Assessment/Plan: * IVF with NS * Serum Osm, Urine lytes , Urine Cr. to determine FeNa (4) Family history of colon cancer in father Assessment/Plan: * Colonoscopy pending Visit type - Emergency Visit Emergency Visit: Yes ED Registration Date: 03/15/17 Care time: The patient presented to the Emergency Department on the above date and was hospitalized for further evaluation of their emergent condition. - New Patient This patient is new to me today: Yes Date on this admission: 03/16/17 - Critical Care Critical Care patient: No
[2017-03-15 20:19] VITALS: BP 122/70; PULSE 79
[2017-03-15] MEDS ORDERED: chlordiazePOXIDE HCL 25 MG CAPSULE PO SCH (23:00)
[2017-03-16] MEDS ORDERED: chlordiazePOXIDE HCL 25 MG CAPSULE PO SCH (23:00)
[2017-03-17] MEDS ORDERED: chlordiazePOXIDE 5 MG CAPSULE PO SCH (23:00)
--- NOTE | 2017-03-20 12:32 | DS ---
Physical Exam: Patient signed against medical advice on 03/15/2017 HOSPITAL COURSE: Date of Admission:03/15/17 Minutes to complete discharge: 25 Discharge Summary Reason For Visit: ALCOHOL WITHDRAWAL; DELIRIUM;ALTERED MENTAL STATUS Condition: Guarded - Instructions Referrals: Natali Sanford MD [Primary Care Provider] - Disposition: AGAINST MEDICAL ADVICE - Home Medications Comprehensive Discharge Medication List: Ambulatory Orders NK [No Known Home Medication] 03/14/17 This patient is new to me today: No Emergency Visit: Yes ED Registration Date: 03/15/17 Care time: The patient presented to the Emergency Department on the above date and was hospitalized for further evaluation of their emergent condition. Critical Care patient: No - Discharge Referral Referred to [facility] Med P.C.: No
== END 2017-03-15 22:01 | disposition left against medical advice (07) | DRG 425 ==
LOC: JER 14:56 → JERBED 19:08 → J7W 21:05
PROVIDERS: ADMIT Internal Medicine; ATTEND Internal Medicine
DX: E87.1 Hypo-osmolality and hyponatremia (principal); D64.9 Anemia, unspecified; F10.230 Alcohol dependence with withdrawal, uncomplicated; K74.60 Unspecified cirrhosis of liver; F17.210 Nicotine dependence, cigarettes, uncomplicated; R44.1 Visual hallucinations; F10.231 Alcohol dependence with withdrawal delirium; R10.13 Epigastric pain; Z80.0 Family history of malignant neoplasm of digestive organs
CPT/HCPCS: 36415; 80053; 80307; 81003; 82140; 83690; 85025; 99285-25

== ENCOUNTER 2017-07-13 09:11 | Day surgery (SDC) | payer OTHER ==
[2017-07-12 10:15] VITALS: BMI 19.8
[2017-07-13] MEDS ORDERED: ceFAZolin SODIUM 1 GM VIAL ONE (09:33)
[2017-07-13] MEDS ORDERED: PROPOFOL 20 ML ONE ×3 (09:36)
[2017-07-13 10:32] VITALS: TEMP 98.1
[2017-07-13 11:30] VITALS: BP 116/71; PULSE 70
--- NOTE | 2017-07-16 11:22 | PATH ---
Surgical Pathology Report Patient Name: LAUREL GUNN [facility]. Rec. #: [id number] /Age/Gender: 1975 (Age: 42) / M Account: [id number] Location: [facility]-ENDOSCOPY Taken: 07/13/2017 Received: 07/13/2017 Reported: 07/16/2017 Physicians: Yash Alcantara M.D. Specimen(s) Received A: BX SECOND PORTION DUODENUM AND DUODENAL BULB B: BX ANTRUM C: RECTAL POLYP D: SIGMOID POLYP Clinical History Preoperative diagnosis: Screening for varices, alcoholic cirrhosis, family history of colon cancer Postoperative diagnosis: Partial gastropathy, diverticulosis, colon polyps, hemorrhoids Final Diagnosis A. DUODENUM, SECOND PORTION AND BULB, BIOPSY: DUODENAL MUCOSA WITH NO PATHOLOGIC CHANGES. NO HISTOLOGIC EVIDENCE OF GLUTEN SENSITIVE ENTEROPATHY (CELIAC SPRUE) IDENTIFIED. B. STOMACH, ANTRUM, BIOPSY: MILD CHRONIC GASTRITIS. IMMUNOSTAIN FOR H. PYLORI IS NEGATIVE. C. COLON, RECTUM, POLYPECTOMY: TUBULAR ADENOMA. D. COLON, SIGMOID, POLYPECTOMY: TUBULAR ADENOMA. Electronically Signed Daquan Foley M.D. Gross Description A. Received in formalin, labeled "biopsy second portion of duodenum and duodenal bulb" are 4 barrett, irregular portions of soft tissue ranging from 0.3-0.4 cm. in greatest dimension. The specimens are submitted in toto in one cassette. B. Received in formalin, labeled "biopsy antrum" are 2 barrett, irregular portions of soft tissue averaging 0.3 cm. in greatest dimension. The specimens are submitted in toto in one cassette. C. Received in formalin, labeled "rectal polyp" is a barrett, polypoid portion of soft tissue measuring 0.5 cm. in greatest dimension. The specimen is submitted in toto in one cassette. D. Received in formalin, labeled "sigmoid polyp" is a barrett, irregular portion of soft tissue measuring 0.4 cm. in greatest dimension. The specimen is submitted in toto in one cassette. 07/13/201707/13/2017
== END 2017-07-13 11:38 | disposition home or self-care (01) ==
LOC: JASU-ENDO 09:11
PROVIDERS: ATTEND Internal Medicine Gastroenterology
PROC: 0DBN8ZX Excision of Sigmoid Colon, Via Natural or Artificial Opening Endoscopic, Diagnostic (ICD-10-PCS; 2017-07-13)
PROC: 0DB98ZX Excision of Duodenum, Via Natural or Artificial Opening Endoscopic, Diagnostic (ICD-10-PCS; 2017-07-13)
PROC: 0DB68ZX Excision of Stomach, Via Natural or Artificial Opening Endoscopic, Diagnostic (ICD-10-PCS; 2017-07-13)
PROC: 0DBP8ZX Excision of Rectum, Via Natural or Artificial Opening Endoscopic, Diagnostic (ICD-10-PCS; principal; 2017-07-13 10:00)
DX: Z12.11 Encounter for screening for malignant neoplasm of colon (principal); Z80.0 Family history of malignant neoplasm of digestive organs; K62.1 Rectal polyp; D12.5 Benign neoplasm of sigmoid colon; K57.30 Diverticulosis of large intestine without perforation or abscess without bleeding; K64.8 Other hemorrhoids; K76.6 Portal hypertension; K31.89 Other diseases of stomach and duodenum
CPT/HCPCS: 88305-TC; 88342-TC

== ENCOUNTER 2021-07-16 07:20 | Emergency (ER) | payer OTHER ==
[2021-07-16 07:54] VITALS: BMI 19.3
[2021-07-16] MEDS ORDERED: ALBUTEROL SO4 2.5/IPRATROPIUM 0.5 INH SOL 3 ML VIAL.NEB. NEB ONE ×2 (09:13→09:25)
[2021-07-16 09:37] LABS: BASO % 0.5 % (0-2.0); EOS % 0.5 % (0-4.5); HEMATOCRIT 33.6 % (35.4-49); HEMOGLOBIN 11.4 GM/dL (11.7-16.9); LYMPH % 9.5 % (8-40); MCH 30.4 pg (25.7-33.7); MEAN CELL VOLUME 89.4 fl (80-96); MEAN PLT VOLUME 8.3 fl (7.5-11.1); MONO % 11.7 % (3.8-10.2); NEUT % 77.8 % (42.8-82.8); PLATELET COUNT 125 10^3/uL (134-434); RBC 3.75 M/mm3 (4.00-5.60); RDW 18.8 % (11.9-15.9); WHITE BLOOD COUNT 7.5 K/mm3 (4.0-10.0)
[2021-07-16 09:50] LABS: INR 1.44 (0.83-1.09); PROTHROMBIN TIME (PATIENT) 16.9 SEC (9.7-13.0)
[2021-07-16 09:52] LABS: ACTIVATED PTT 33.3 SECONDS (25.2-36.5)
[2021-07-16 09:55] LABS: CHLORIDE 100 mmol/L (98-107); SODIUM 131 mmol/L (136-145)
[2021-07-16 09:57] LABS: ALBUMIN 2.8 g/dl (3.4-5.0); CALCIUM 7.9 mg/dL (8.5-10.1); GLUCOSE,RANDOM 115 mg/dL (74-106)
[2021-07-16 09:58] LABS: ANION GAP 8 MMOL/L (8-16); CO2 23 mmol/L (21-32)
[2021-07-16 10:00] LABS: BILIRUBIN,DIRECT 0.2 mg/dL (0.0-0.2)
[2021-07-16 10:01] LABS: CREATININE 0.6 mg/dL (0.55-1.3); SGOT/AST 29 U/L (15-37); SGPT/ALT 18 U/L (13-61)
[2021-07-16 10:02] LABS: BILIRUBIN,TOTAL 0.6 mg/dL (0.2-1); TOT PROT 7.1 g/dl (6.4-8.2)
[2021-07-16 10:03] LABS: LDH 181 U/L (87-246)
[2021-07-16 10:04] LABS: ALK PHOS 119 U/L (45-117)
[2021-07-16 10:52] LABS: URINE APPEARANCE CLEAR; URINE BILIRUBIN NEGATIVE (NEGATIVE); URINE COLOR YELLOW; URINE GLUCOSE (UA) NEGATIVE (NEGATIVE); URINE KETONE NEGATIVE (NEGATIVE); URINE LEUK ESTERASE NEGATIVE (NEGATIVE); URINE NITRITE NEGATIVE (NEGATIVE); URINE PROTEIN NEGATIVE (NEGATIVE); URINE UROBILINOGEN 0.2 mg/dL (0.2-1.0)
[2021-07-16 12:43] LABS: BLOOD UREA NITROGEN 2.1 mg/dL (7-18)
[2021-07-16 15:39] VITALS: BP 129/72; TEMP 100.4
[2021-07-17 08:37] VITALS: PULSE 94
== END 2021-07-16 15:47 | disposition home or self-care (01) ==
LOC: JER 07:20 → JCOVINFU 07:20 → JER 15:47
PROC: 3E0F7GC Introduction of Other Therapeutic Substance into Respiratory Tract, Via Natural or Artificial Opening (ICD-10-PCS; principal; 2021-07-16)
DX: R06.02 Shortness of breath (principal)
CPT/HCPCS: 36415; 71045-TC-FY; 71275-TC; 80053; 81003; 82248; 82550; 82553; 82728; 83605; 83615; 84484; 85025; 85379; 85610; 85730; 86140; 87086; 87804; 93005; 93010; 99284-25; C9803; U0003; U0005